=== PATIENT | male | born 1955 | race Caucasian/White ===

== ENCOUNTER → 2021-09-04 13:12 | Outpatient (CLI) | payer OTHER, SELFPAY ==
--- NOTE | ~2021-09-04 | CT_ITS ---
EXAMINATION: CT lung screening DATE: 09/04/2021 13:28 INDICATION: Personal history of tobacco dependence TECHNIQUE: Computed tomography (CT) of the chest was performed without intravenous contrast. The dose -length product was 328.70 mGy-cm. COMPARISON: None FINDINGS: No thoracic lymphadenopathy. Heart size normal. No significant pleural or pericardial effus ion. Pacemaker leads in expected position. There is a 3 mm left fissural nodule on the left. There is a 5 mm right middle lobe nodule. There is dependent atelectasis. No pneumothorax. No endobronchial l esions. Mild thoracic spondylosis. IMPRESSION: 1. Lung-RADS category 2: Benign appearance or behavior. Continue annual screening with noncontrast lo w-dose chest CT in 12 months. Reviewed, dictated and finalized at location B. GER ECONOMIC IMPRESSION: 1. Lung-RADS category 2: Benign appearance or behavior. Continue annual screeni ng with noncontrast low-dose chest CT in 12 months.
== END ==
PROVIDERS: PCP Internal Medicine; Visit Provider Internal Medicine
DX: Z87.891 Personal history of nicotine dependence (principal)
CPT/HCPCS: 71271

== ENCOUNTER 2021-09-05 08:13 | Outpatient (CLI) | payer OTHER, SELFPAY ==
--- NOTE | 2021-09-24 17:49 | WPDSLEEPSTUD ---
Sleep Study Date of Study: 09/05/21 <Sheela Braswell, DO - Last Filed: 09/24/21 19:01> Ordering Provider: Feliciano Nieto DO <Sheela Brasewll, DO - Last Filed: 09/24/21 19:01> Interpreting Physician: Sheela Braswell DO <Sheela Braswell, DO - Last Filed: 09/24/21 19:01> Sleep Study Type: Split Polysomnogram <Sheela Braswell DO - Last Filed: 09/24/21 19:01> Height: 1.83 m <Sheela Braswell DO - Last Filed: 09/24/21 19:01> Weight: 113.398 kg <Sheela Braswell DO - Last Filed: 09/24/21 19:01> Body Mass Index: 33.9 <Sheela Braswell DO - Last Filed: 09/24/21 19:01> Neck Circumference (inches): 17 <Sheela Braswell DO - Last Filed: 09/24/21 19:01> Sturgis: 10 <Sheela Braswell DO - Last Filed: 09/24/21 19:01> Reason for Sleep Study The patient was diagnosed with LUCIE 10-15 years ago. He is on PAP Therapy. He is snoring and has unrefreshing sleep despite being on CPAP. <Sheela Braswell, DO - Last Filed: 09/24/21 19:01> Sleep History The patient is a 65-year-old male with atrial fibrillation, hypertension, hyperlipidemia, history of stroke, long QT type 1 and LUCIE that had a Split Study ordered by his PCP for snoring and unrefreshing sleep despite being compliant with PAP Therapy. the patient states that he denies awakening from sleep short of breath. He rarely wakes up at night with heartburn, belching or cough. He frequently snores loud enough that others complain. He occasionally has trouble sleeping when he has a cold. He denies waking up gasping for air throughout the night. He frequently has breathing problems at night observed by others. He rarely sweats excessively at night. He rarely has heart palpitations or irregular heartbeats during the night. He occasionally falls asleep during the day but never while driving. He rarely has trouble at work due to sleepiness. He denies sleep paralysis and cataplexy. He rarely experiences vivid dreamlike scenes upon awakening or falling asleep. He rarely has nightmares. He denies having thoughts racing through his mind. He rarely feels sad or depressed. He rarely has anxiety. He occasionally notices parts of his body jerk. He rarely kicks during the night. He denies crawling and aching feelings in his legs. He rarely has leg pain during the night. He denies grinding his teeth during sleep awakening with jaw pain in the morning. He received friendly bothered by pain during the day and denies being awakened by pain during the night. He frequently wakes up feeling stiff in the morning. He rarely wakes up with sore and achy muscles. The patient goes to bed at 10:00 p.m. on weekdays and 11:00 p.m. on weekends. the patient can fall asleep within 2-3 minutes. He wakes up once or twice to use the restroom. He can fall back asleep within minutes. He wakes up at 5:45 a.m. on weekdays and 6:15 a.m. on the weekends. He typically gets 7-8 hours of sleep per night. He will stay in bed for 5 minutes after awakening. The patient currently lives with his and granddaughter. The patient does consume caffeinated beverages within 2 hours of bedtime. He does not engage in physical exercise before bedtime. He will watch television before falling asleep. He does not take naps in afternoon or the evening. He drinks 5-6 cups of coffee per day. He has 2-3 alcoholic beverages per month. He quit smoking 8 years ago. He does not use recreational drugs. <Sheela Braswell DO - Last Filed: 09/24/21 19:01> [facility] Past Medical History Medical History: Medical History A-fib Abnormal angiogram of head Dyslipidemia Essential (primary) hypertension History of stroke Radiculopathy of cervical region Stroke <Sheela Braswell, DO - Last Filed: 09/24/21 19:01> Surgical History Surgical History: Surgical History (Reviewed
[2021-09-24 17:52] VITALS: BMI 33.9
== END 2021-09-06 06:25 | disposition home or self-care (01) ==
LOC: ANHCSM 08:17
PROVIDERS: PCP Internal Medicine; Visit Provider Internal Medicine
DX: G47.10 Hypersomnia, unspecified (principal); G47.33 Obstructive sleep apnea (adult) (pediatric); F45.8 Other somatoform disorders; G47.8 Other sleep disorders
CPT/HCPCS: 95811

== ENCOUNTER 2021-10-17 12:52 | Outpatient (CLI) | payer OTHER, SELFPAY ==
--- NOTE | ~2021-10-17 | CT_ITS ---
EXAMINATION: CT shoulder RT wo con DATE: 10/17/2021 13:25 INDICATION: Right shoulder pain. TECHNIQUE: Computed tomography (CT) of the right shoulder was performed without intravenous contrast. Automated exposure control and iterative reconstruction technique were employed. The dose-length pro duct was 492.81 mGy-cm. COMPARISON: None FINDINGS: Bone alignment is normal. No fracture. The acromion undersurface is curved in morphology (t ype II). Subacromial spurring is noted. There is severe acromioclavicular joint osteoarthritis and mi ld glenohumeral joint osteoarthritis. There is no asymmetric fatty atrophy of the rotator cuff muscle bellies. IMPRESSION: 1. Polyarticular osteoarthritis. Reviewed, dictated and finalized at location B. HEALTH NURSE
== END 2021-10-17 12:53 | disposition home or self-care (01) ==
LOC: ANHIMG 13:01
PROVIDERS: PCP Internal Medicine; Visit Provider Nurse Practitioner
DX: M19.011 Primary osteoarthritis, right shoulder (principal)
CPT/HCPCS: 73200

== ENCOUNTER 2024-03-08 09:37 | Outpatient (CLI) | payer OTHER, SELFPAY ==
[2024-03-08 13:40] LABS: Anion Gap 6 mmol/L (4-12); Blood Urea Nitrogen 22 mg/dL (9-20); Calcium 9.2 mg/dL (8.4-10.2); Carbon Dioxide 28 mmol/L (22-30); Chloride 107 mmol/L (98-107); Estimated Glomerular Filt Rate > 60; Glucose 113 mg/dL (65-110); Potassium 3.3 mmol/L (3.4-5.0); Sodium 141 mmol/L (137-145)
== END 2024-03-08 09:38 | disposition home or self-care (01) ==
LOC: ANHGOSHLAB 09:39
PROVIDERS: PCP Internal Medicine; Visit Provider Internal Medicine
DX: R73.9 Hyperglycemia, unspecified (principal); N18.9 Chronic kidney disease, unspecified
CPT/HCPCS: 36415; 80048

== ENCOUNTER 2024-09-26 07:44 | Outpatient (CLI) | payer OTHER, SELFPAY ==
--- NOTE | ~2024-09-26 | US_ITS ---
EXAMINATION: US aorta DATE: 09/26/2024 08:22 INDICATION: Encounter for screening for cardiovascular disease. TECHNIQUE: Grayscale, color Doppler, and pulsed Doppler images of the aorta and common iliac arteries were obtained. COMPARISON: None. FINDINGS: The proximal aorta measures 2.6 cm. The mid aorta measures 2.4 cm. The distal aorta measures 5.3 cm. The right common iliac artery measures 1.3 cm. The left common iliac artery measures 0.9 cm. IMPRESSION: 1. Fusiform infrarenal abdominal aortic aneurysm measuring up to 5.3 cm in maximal diameter. Reviewed, dictated and finalized at location B. RACT CLERK IMPRESSION: 1. Fusiform infrarenal abdominal aortic aneurysm measuring up to 5.3 cm in maxi mal diameter.
--- NOTE | ~2024-09-26 | CT_ITS ---
EXAMINATION: CT lung screening DATE: 09/26/2024 08:21 INDICATION: Personal history of nicotine dependence TECHNIQUE: Computed tomography (CT) of the chest was performed without intravenous contrast. Addition al 3D reconstructions utilizing coronal maximum intensity projection (MIP) were performed. Automated exposure control and iterative reconstruction technique were employed. The dose-length product was 30 1.03 mGy-cm. COMPARISON: 09/04/2021 FINDINGS: Unchanged 5-6 mm right middle lobe nodule. Unchanged 3 mm left fissural nodule. No significant change in a few scattered peripheral regions of subtle reticular opacities most likely scarring related to prior infection. No new or enlarging pulmonary nodules, pulmonary edema or pleural effusion. Heart si ze is normal. Small amount of atherosclerotic coronary artery calcific location. No pericardial effus ion. Cardiac pacemaker lead tip near the apex of the right ventricle. Left atrial appendage occlusion device. Thoracic aorta is normal in caliber. No pathologically enlarged thoracic lymphadenopathy. Mi ld thoracic dextrocurvature with severe spondylosis. Chronic mild anterior wedging at T7 and T8. IMPRESSION: 1. Lung-RADS category 2: Benign appearance or behavior. Continue annual screening with noncontrast lo w-dose chest CT in 12 months. Reviewed, dictated and finalized at location B. ACT AND SERVICE CLERKS SUPERVISOR IMPRESSION: 1. Lung-RADS category 2: Benign appearance or behavior. Continue annual screeni ng with noncontrast low-dose chest CT in 12 months.
== END 2024-09-26 07:45 | disposition home or self-care (01) ==
LOC: MICIMG 07:45
PROVIDERS: PCP Internal Medicine; Visit Provider Internal Medicine
DX: I71.40 Abdominal aortic aneurysm, without rupture, unspecified (principal); Z13.6 Encounter for screening for cardiovascular disorders; Z87.891 Personal history of nicotine dependence
CPT/HCPCS: 71271; 76775

== ENCOUNTER 2025-01-04 01:33 | Day surgery (SDC) | payer OTHER, SELFPAY ==
[2024-11-09 15:23] VITALS: BMI 35.9
--- NOTE | 2024-11-09 15:39 | PC.NURSE ---
Pt stated is having a AAA repair/stent placement on 11/15/24, the day after his colonoscopy, with Dr. Mendes at [facility]. I informed pt he will need clearance from anesthesia and Dr. Carreon before proceeding with his colonoscopy. Pt is to stop plavix, last dose being 11/09. Pt stated will not take plavix tomorrow regardless if he has the colonoscopy in prep form his AAA repair. Pt understands we will call him after we speak with anesthesia and Dr. Carreon.
[2024-12-28 09:45] VITALS: BMI 34.6
--- NOTE | 2024-12-29 14:27 | SUR.PREOP ---
Spoke with patient in regards to Dr. Alvarez office visit on 12/27/24 for AAA follow up and that he had recommended patient to have antibiotics perioperatively due to recent AAA repair on 11/15/24. Patient did confirm that Dr. Mendes had mentioned this when he seen him in office 12/27/24 but did not prescribe him anything. I spoke with the MA Scottie she stated she did not have any orders for antibiotics to be ordered by Dr. Mendes, I told her the antibiotics that Dr. Carreon will use for hx of vavle replacement or hx of endocarditis are ampicillin and gentamicin. I asked her if this would be appropriate enough and she stated to order what our doctor thought appropriate. Per Dr. Pro the ampicillin and gentamicin are appropriate and have been ordered to be given day of. Last dose of Plavix confirmed to be taken on 12/30/24.
--- OUTSIDE RECORDS SUMMARY | 2025-01-04 01:36 | XMS_ITS | Clinical Summary ---
Author Organization [facility] Address [address] [place] [address] Care Team Providers Care Dipper And Baker Name Role Phone Naresh Nieto DO Primary Care Provider [phone] Krishna Chaparro MD Unavailable [phone] Dusty Mendes MD Unavailable [phone] Allergies No known active allergies Medications atorvastatin (LIPITOR) 40 mg tablet Take 1 tablet by mouth once daily 90 tablet 2 04/11/20 24 Active losartan-hydro chlorothiazide (HYZAAR) 100-25 mg per tablet Take 1 tablet by mouth nightly 90 tablet 3 10/19/19 25 Active UNABLE TO FINDIndication s:pain Apply 1 each topically as needed (as needed for pain) Med Name: Cool Breeze Menthol THC infused lotion 1:1 THC/CBD Active acetaminophen (TYLENOL) 500 mg tabletIndicati ons:Pain Take 2 tablets (1,000 mg total) by mouth every 6 (six) hours as needed for pain Active clopidogreL (PLAVIX) 75 mg tablet Take 1 tablet (75 mg total) by mouth daily 11/18/19 25 026 Active nadoloL (CORGARD) 20 mg tablet TAKE 1 TABLET BY MOUTH ONCE DAILY ALONG WITH 40MG FOR TOTAL DAILY DOSE OF 60MG 90 tablet 12/13/19 25 Active nadoloL (CORGARD) 40 mg tablet TAKE 1 TABLET BY MOUTH ONCE DAILY WITH 20MG TABLET FOR A TOTAL DOSE OF 60MG 90 tablet 12/13/19 Active nadoloL (CORGARD) 40 mg tablet TAKE 1 TABLET BY MOUTH ONCE DAILY WITH 20MG TABLET FOR A TOTAL DOSE OF 60MG 90 tablet 3 11/22/19 24 025 Discontinued nadoloL (CORGARD) 20 mg tablet TAKE 1 TABLET BY MOUTH ONCE DAILY ALONG WITH 40MG FOR TOTAL DAILY DOSE OF 60MG 90 tablet 3 11/22/19 24 025 Discontinued oxyCODONE (ROXICODONE) 5 mg immediate release tabletIndicati ons:Pain Take 1 tablet (5 mg total) by mouth every 4 (four) hours as needed for pain 5 tablet 11/16/19 25 025 Discontinued( erapy completed) senna-docusate (PERICOLACE) 8.6-50 mg Take 1 tablet by mouth daily 30 tablet 11/16/19 25 025 Discontinued( erapy completed) Active Problems Problem Noted Date Diagnosed Date AAA (abdominal aortic aneurysm) without rupture 11/15/2024 Assessment & Plan (11/15/2024 1:59 PM RADIO BOARD OPERATOR ANNOUNCER): Patient with hx of AAA. Most recent CTA showed Infrarenal aortic aneurysm with maximal measurement of 5.3 x 5.4cm beginning about 3.1 cm below the left renal artery ending above the bifurcation. -OR on 11/15 for EVAR -Q2 NV checks, OU, gianna -SBP goal 110-150 -ADAT -bedrest overnight, keep porras -pain control Mixed hyperlipidemia 02/09/2024 Presence of Amulet left atrial appendage closure device 01/08/2024 ICD (implantable cardioverter-defibrillator) in place 12/19/2021 Traumatic tear of right rotator cuff, initial en counter 11/18/2021 Overview (11/18/2021): Added automatically from request for surgery [id number] CVA (cerebral vascular accident) 08/15/2021 Assessment & Plan (11/15/2024 7:35 AM RADIO BOARD OPERATOR ANNOUNCER): s/p aspiration thrombectomy 11/2019, R MCA stroke in 11/2019 and recent MRI 09/2023 finding of chronic caudate hemorrhage in location of prior RMCA stroke -cont statin -hold plavix for now Assessment & Plan (08/16/2021 9:20 AM RADIO BOARD OPERATOR ANNOUNCER): Dx 2020 - cont ASA, statin Assessment & Plan (08/15/2021 4:25 PM RADIO BOARD OPERATOR ANNOUNCER): Dx 2020 - cont ASA, statin Long Q-T syndrome 07/17/2021 Overview (07/17/2021): Added automatically from request for surgery [id number] Assessment & Plan (11/15/2024 7:36 AM RADIO BOARD OPERATOR ANNOUNCER): S/p single lead ICD (nChannel) -OU monitoring overnight -cont OP follow up Assessment & Plan (08/16/2021 9:20 AM RADIO BOARD OPERATOR ANNOUNCER): + Genetic testing with family hx of multiple sudden deaths. S/p ICD placement with EP 08/15. - s/p IV cefazolin q8 x3 - home xarelto on hold, resume 08/20 - f/u with EP Assessment & Plan (08/15/2021 4:24 PM RADIO BOARD OPERATOR ANNOUNCER): + Genetic testing with family hx of multiple sudden deaths. S/p ICD placement with EP 08/15. - cont IV cefazolin q8 x3 - bedrest overnight, cont arm sling - tele, CXR in AM, CBC in AM - no heparin products - home xarelto on hold, resume 08/20 Hypertriglyceridemia 10/13/2019 Obstructive sleep apnea 09/03/2018 Assessment & Plan (08/16/2021 9:20 AM RADIO BOARD OPERATOR ANNOUNCER): - cont home CPAP Assessment & Plan (08/15/2021 4:25 PM RADIO BOARD OPERATOR ANNOUNCER): - cont home CPAP Mitral valve prolapse 09/03/2018 Former tobacco use 09/03/2018 Lipid screening 09/03/2018 Bilateral lower extremity edema 09/03/2018 BRICE (dyspnea on exertion) 09/03/2018 Family history of sudden cardiac 8 Atrial fibrillation 08/30/2014 Overview (01/09/2017): Atrial fibrillation Assessment & Plan (11/15/2024 7:35 AM RADIO BOARD OPERATOR ANNOUNCER): On nadolol at home, not on AC. Has watchman in place -restart nadolol as able -OU overnight Assessment & Plan (08/16/2021 9:20 AM RADIO BOARD OPERATOR ANNOUNCER): Follows with Dr. Reynolds of [facility] cantu on hold, resume 08/20 - cont home BB - tele Assessment & Plan (08/15/2021 4:25 PM RADIO BOARD OPERATOR ANNOUNCER): Follows with Dr. Reynolds of [facility] cantu on hold, resume 08/20 - cont home BB - tele Resolved Problems Problem Noted Date Diagnosed Date Resolved Date Infrarenal abdominal aortic aneurysm (AAA) without rupture 10/26/2024 11/15/2024 Chronic anticoagulation 10/13/2019 05/0 04/2024 Essential hypertension 09/03/201812/13 Assessment & Plan (08/16/2021 9:20 AM RADIO BOARD OPERATOR ANNOUNCER): - cont home losartan/HCTZ Assessment & Plan (08/15/2021 4:25 PM RADIO BOARD OPERATOR ANNOUNCER): - cont home losartan/HCTZ Encounters Date Type Department Care Team Description 12/27/2024 10:30 AM CDT Office Visit [facility] Stroke [address] [facility] [address] [place] [address] Bruno Cole MD 12/27/2024 8:30 AM CDT Office Visit [facility] Surgery [address] [facility] 8th [place] [address] [place] [address] Dusty Mendes MD Abdominal aortic aneurysm (AAA) without rupture, unspecified part (Primary Dx); Aftercare following surgery of the circulatory system 12/27/2024 6:49 AM CDT - 12/27/2024 11:59 PM CDT Hospital Encounter [facility] [address] [place] [address] Abdominal aortic aneurysm (AAA) without rupture, unspecified part; Aftercare following surgery of the circulatory system Discharge Disposition: Discharge to home or self care 12/27/2024 Orders Only [facility] Surgery [address] [facility] Floor 1 [place] [address] Dusty Mendes MD Abdominal aortic aneurysm (AAA) without rupture, unspecified part (Primary Dx); Aftercare following surgery of the circulatory system 12/13/2024 10:45 AM CDT Office Visit [facility] Cardiology [address] [place] [address] [place] [phone] Desi Reynolds MD Long Q-T syndrome (Primary Dx); Longstanding persistent atrial fibrillation (HCC); Mitral valve prolapse; ICD (implantable cardioverter-defibri llator) in place 12/13/2024 10:15 AM CDT Ancillary Procedure [facility] Cardiology [address] [facility] [address] [place] [phone] Long Q-T syndrome (Primary Dx); Fitting and adjustment of automatic implantable cardioverter-defibri llator 12/09/2024 Telephone [facility] Surgery [address] [facility] Floor 1 [place] [address] Scottie Valdivia CMA 12/06/2024 Telephone [facility] Cardiology [address] [facility] [address] [place] [phone] Thaddeus Del Castillo MD Pre-op 11/15/2024 7:50 AM RADIO BOARD OPERATOR ANNOUNCER Anesthesia Event [facility] Electrophysiology Lab 1 [place] [address] Esperanza Holman MD Harkins, Cherice Lynette, NP 11/15/2024 7:30 AM RADIO BOARD OPERATOR ANNOUNCER - 11/15/2024 11:40 AM RADIO BOARD OPERATOR ANNOUNCER Surgery [facility] Electrophysiology Lab 1 [place] [address] Dusty Mendes MD EVAR - Aorta Endovascular Repair 11/15/2024 5:41 AM RADIO BOARD OPERATOR ANNOUNCER - 11/16/2024 2:18 PM RADIO BOARD OPERATOR ANNOUNCER Hospital Encounter [facility] 1 [place] [address] Dusty Mendes MD Infrarenal abdominal aortic aneurysm (AAA) without rupture Discharge Disposition: Discharge to home or self care 11/10/2024 Telephone [facility] Surgery [address] [facility] Floor 1 [place] [address] Scottie Valdivia CMA 11/09/2024 Telephone [facility] Cardiology [address] [facility] [address] [place] [address] Thaddeus Del Castillo MD 11/04/2024 Telephone [facility] Cardiology [address] [facility] Medicine 8th [place] [address] [place] [address] Licha Kenny 11/03/2024 9:30 AM RADIO BOARD OPERATOR ANNOUNCER Pre-Admission Testing [facility] for Preoperative Assessment and Planning [facility] [address] [place] [address] Preoperative testing (Primary Dx) 11/03/2024 Orders Only [facility] Surgery [address] [facility] Floor 1 [place] [address] Dusty Mendes MD Abdominal aortic aneurysm (AAA) without rupture, unspecified part (Primary Dx); Aftercare following surgery of the circulatory system 11/03/2024 Telephone [facility] Surgery [address] [facility] Floor 1 [place] [address] Dusty Mendes MD 10/27/2024 Orders Only [facility] Cardiology [address] [facility] Medical Office Building [address] [place] [address] Desi Reynolds MD 10/27/2024 Documentation [facility] Surgery [address] [facility] 2nd Floor [address] [place] [address] Scottie Valdivia CMA 10/26/2024 9:30 AM RADIO BOARD OPERATOR ANNOUNCER Office Visit [facility] Surgery [address] [facility] 2nd Floor [address] [place] [address] Dusty Mendes MD Abdominal aortic aneurysm (AAA) without rupture, unspecified part 10/18/2024 1:49 PM RADIO BOARD OPERATOR ANNOUNCER - 10/18/2024 11:59 PM RADIO BOARD OPERATOR ANNOUNCER Hospital Encounter [facility] [address] [place] [address] Dusty Mendes MD Infrarenal abdominal aortic aneurysm (AAA) without rupture Discharge Disposition: Discharge to home or self care 10/17/2024 9:15 AM RADIO BOARD OPERATOR ANNOUNCER Office Visit [facility] Cardiology at [address] [place] [address] Thaddeus Del Castillo MD Mixed hyperlipidemia (Primary Dx); Paroxysmal atrial fibrillation (HCC); Essential hypertension; ICD (implantable cardioverter-defibri llator) in place; Long Q-T syndrome; Presence of Amulet left atrial appendage closure device; Infrarenal abdominal aortic aneurysm (AAA) without rupture 10/10/2024 Orders Only [facility] Surgery [address] [facility] Floor 1 [place] [address] Dusty Mendes MD Infrarenal abdominal aortic aneurysm (AAA) without rupture (Primary Dx) 10/07/2024 Telephone [facility] Surgery [address] [facility] Floor 1 [place] [address] Dusty Mendes MD from Last 3 Months Immunizations Immunization Administration Dates Next Due Influenza, Trivalent, High D ose, Split, Preservative Free, Intramuscular 11/16/2024 Surgical History Surgery Date Site/Laterality Comments TIBIA FRACTURE SURGERY c2013 Right DENTAL SURGERY 07/01/2021 multiple teeth extractions COLONOSCOPY SHOULDER SURGERY 10/05/2021 - 10/04/2022 torn bicep and rotator cuff CARDIAC DEFIBRILLATOR PLACEMENT 08/15/2021 [employer] BRAIN SURGERY Thrombectomy on Nov 09, 2019 FRACTURE SURGERY March 2013 CARDIAC VALVE REPLACEMENT Install Automa tic Internal Defibrillator/Pacer JOINT REPLACEMENT Shoulder reconstruct ion - November 2021 CARDIAC CATHETERIZATION 11/15/2024 N/A Procedure: EVAR - Aorta Endovascular Repair; Surgeon: Dusty Mendes MD; Location: [facility] EP [facility]; Service: Vascular; Laterality: N/A; Medical devices from this surgery are in the Medical Devices section. 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 Hyperlipidemia Stroke (HCC) 11/09/2019 Family History Medical History Relation Name Comments Other Brother 2 Afib; Cause of : Afib Alzheimer's disease Father Camryn Chamberlain Alzhe va's disease; Hypertension Father Camryn Chamberlain Memory loss Father Camryn Chamberlain Obesity Father Camryn Chamberlain Other Father Camryn Chamberlain Alive and we ll; Alzheimer's disease Mother Carlene Chamberlain Alzhei steven's disease; Cancer Mother Carlene Chamberlain Heart disease Mother Carlene Chamberlain Hypertension Mother Carlene Chamberlain Memory loss Mother Carlene Chamberlain Obesity Mother Carlene Chamberlain Cancer Paternal Grandfather Dean Chamberlain Anesthesia problems Neg Hx Malig Hyperthermia Neg Hx Relation Name Status Comments Brother 1 Brother 2 Father Camryn Chamberlain Alive Mother Carlene Chamberlain Paternal Grandfather Dean Chamberlain Social History Tobacco Use Types Packs/Day Years Used Date Smoking Tobacco: Former Cigarettes 1 40 0 10/05/1973 - 10/05/2013 Passive Smoke Exposure: Never Smokeless Tobacco: Never Tobacco Cessation:Counseling Given: Not Answered Comments:Still smoke a cigar on rare occasion. Alcohol Use Standard Drinks/Week Comments Yes 0 (1 standard drink = 0.6 oz pur e alcohol) all occassionally AUDIT-C Answer Date Recorded Q1: How often do you have a drink containing alc ohol? 2-4 times a month 11/15/2024 Q2: How many drinks containi ng alcohol do you have on a typical day when you are drinking? 1 or 2 11/15/2024 Q3: How often do you have si x or more drinks on one occasion? Never 11/15/2024 Personal Safety Answer Date Recorded Have you ever been in or are you currently in a harmful physical or emotional relationship or is someone making you feel afraid or unsafe? Denies 11/15/2024 Sex and Gender Information Value Date Recorded Sex Assigned at Not on file Legal Sex Male 7:41 AM RADIO BOARD OPERATOR ANNOUNCER Gender Identity Male 04/03/2021 2:48 PM CDT Sexual Orientation Straight 04/03/2021 2: 48 PM CDT Obstetrics History Last Filed Vital Signs Vital Sign Reading Time Taken Comments Blood Pressure 110/76 12/27/2024 10:14 AM CDT Pulse 76 12/27/2024 10:14 AM CDT Temperature 36.1 C (97 F) 12/13/2024 10:22 AM CDT Respiratory Rate 20 11/16/2024 11:29 AM RADIO BOARD OPERATOR ANNOUNCER Oxygen Saturation 97% 12/27/2024 8:22 AM CDT Inhaled Oxygen Concentration - - Weight 116.1 kg (256 lb) 12/27/2024 10:14 AM CDT Height 182.9 cm (6') 12/27/2024 10:14 AM CDT Body Mass Index 34.72 12/27/2024 10:14 AM CDT Plan of Treatment Health Maintenance Due Date Last Done Comments Colon Cancer Screening-Colonoscopy 1957 Depression Screening 1957 Hepatitis C Screening 1957 Prostate Cancer Screening-PSA 1957 DTaP/Tdap/Td Vaccine (1 - Tdap) 1968 Hepatitis B Screening 1975 Lung Cancer Screening 2007 Pneumococcal vaccine 65+ (1 of 1 - PCV) 2007 Zoster Vaccine (1 of 2) 2007 Well Visit 65+ 2022 Covid-19 Vaccine (3 - 2023-2 5 season) 2024 10/12/2020, 09/21/2020 Fall Risk Assessment 11/16/2025 11/16/2024, 03/09/20 20 Influenza Vaccine Completed 11/16/2024, 10/23/2012 Abdominal Aortic Aneurysm (A AA) Screen Completed 12/27/2024, 12/27/2024, 12/27/2024, Additional history exists Medical Devices Implanted Type Area Agility Instructor Device Identifier Shelf Expiration Date Model / Serial / Lot [employer] Vascade Mvp 6-12fr Venous Closure [id number] - [id number] Implanted:Qty: 1 on 01/08/2024 by Chava Quick MD at [facility] Right: Femoral Vein [employer] 09/07/2025 [id number] C-10U / / [id number] [employer] [place] Excluder 14.5mm 12cm Contralateral Leg Graft Endovascular [id number] - [id number] - [id number] Implanted:Qty: 1 on 11/15/2024 by Dusty Mendes MD at [facility] Endoprosthesis Left: Common Iliac Artery [employer] 05/23/2027 [id number] 00 / [id number] / [employer] [place] Excluder 14.5mm 10cm Contralateral Leg Graft Endovascular [id number] - [id number] - [id number] Implanted:Qty: 1 on 11/15/2024 by Liliane Aguilera MD at [facility] Endoprosthesis Right: Common Iliac Artery [employer] 08/28/2027 [id number] 00 / [id number] / [employer] Shantal D150 Dynagen Enduralife Easyview Hf Perspectiv 5.37x7.36cm 1 Chamber - [id number] - [id number] Implanted:Qty: 1 on 08/15/2021 by Blaine Crawford DO at [facility] ICD Left: Chest Wall [employer] 10/26/2021 D150 / [id number] / [employer]antal 0676 [place] 4-Front 64cm Active Fixation 2 Coil Lead Icd - [id number] - [id number] Implanted:Qty: 1 on 08/15/2021 by Blaine Crawford DO at [facility] Lead Left: Heart [employer] 06/27/2023 0676 / [id number] / [employer] [id number] 3.3x2.9in Large Envelope Absorbable Polyarylate Minocycline - [id number] Implanted:Qty: 1 on 08/15/2021 by Desi Reynolds MD at [facility] Other - see comments [employer] 04/14/2022 [id number] / / [id number] Description:Antibacterial en velope for Implant [employer] Excluder 14.5mm 28.5mm 12cm 5.5cm Conformable Active Control Trunk [id number] - [id number] - [id number] Implanted:Qty: 1 on 11/15/2024 by Dusty Mendes MD at [facility] Stent N/A: Abdominal Aorta [employer] 08/16/2027 [id number] 12 / [id number] / [id number] [employer] System Closure Repair Femoral Artery Suture Mediated Perclose Prostyle 33213-33 - [id number] - [id number] Implanted:Qty: 1 on 11/15/2024 by Liliane Aguilera MD at [facility] Vascular Closure Device [employer] 08/04/2026 42369-9 3 / [id number] / [id number] [employer] System Closure Repair Femoral Artery Suture Mediated Perclose Prostyle 79576-18 - [id number] - [id number] Implanted:Qty: 1 on 11/15/2024 by Liliane Aguilera MD at [facility] Vascular Closure Device Right: Groin [employer] 08/04/2026 90973-6 3 / [id number] / [id number] [employer] System Closure Repair Femoral Artery Suture Mediated Perclose Prostyle 41565-39 - [id number] - [id number] Implanted:Qty: 1 on 11/15/2024 by Liliane Aguilera MD at [facility] Vascular Closure Device Left: Groin [employer] 08/04/2026 10954-6 3 / [id number] / [id number] [employer] System Closure Repair Femoral Artery Suture Mediated Perclose Prostyle 99967-42 - [id number] - [id number] Implanted:Qty: 1 on 11/15/2024 by Liliane Aguilera MD at [facility] Vascular Closure Device Left: Groin [employer] 08/04/2026 29936-6 3 / [id number] / [id number] [employer] Ar-1927bcft Corkscrew Tigertail 5.5mm 14[address] Mechanism Vent 2 Square - [id number] Implanted:Qty: 1 on 11/20/2021 by Krishna Chaparro MD at [facility] Right: Shoulder [employer] 10/04/2024 AR-1927 [facility] / / [id number] [employer] Ar-1927bcft Corkscrew Tigertail 5.[address] 14[address] Mechanism Vent 2 Square - [id number] Implanted:Qty: 1 on 11/20/2021 by Krishna Chaparro MD at [facility] Right: Shoulder [employer] 05/04/2024 AR-1927 FT / / [id number] [employer] Ar-1927bcft Corkscrew Tigertail 5.5mm 14[address] Mechanism Vent 2 Square - [id number] Implanted:Qty: 1 on 11/20/2021 by Krishna Chaparro MD at [facility] Right: Shoulder [employer] 10/04/2023 AR-1927 [facility] / / [id number] [employer] Ar-1927bcft Corkscrew Tigertail 5.5mm 14[address] Mechanism Vent 2 Square - [id number] Implanted:Qty: 1 on 11/20/2021 by Krishna Chaparro MD at [facility] Right: Shoulder [employer] 10/04/2023 AR-1927 [facility] / / [id number] [employer] Ar-2324bcc Swivelock C 4.75mm 19.1mm Closed Eyelet Vent [place] Suture - [id number] Implanted:Qty: 1 on 11/20/2021 by Krishna Chaparro MD at [facility] Right: Shoulder [employer] 08/04/2025 AR-2324 [facility] / / [id number] [employer] Ar-2324bcc Swivelock C 4.75mm 19.1mm Closed Eyelet Vent [place] Suture - [id number] Implanted:Qty: 1 on 11/20/2021 by Krishna Chaparro MD at [facility] Right: Shoulder [employer] 07/04/2025 AR-2324 [facility] / / [id number] [employer] Percutaneous Transcatheter Amplatzer Amulet 25mm [id number]-[id number] - [id number] Implanted:Qty: 1 on 01/08/2024 by Chava Quick MD at [facility] [employer] 01/03/2028 9-ACP2- 010-025 / / [id number] [employer] Device Clsr Perclose Prostyle Sut-Mediatd Closure-Repair Sys 41340-06 - [id number] Implanted:Qty: 1 on 01/08/2024 by Chava Quick MD at [facility] [employer] 10/04/2025 05245-9 3 / [id number] [employer] Device Clsr Perclose Prostyle Sut-Mediatd Closure-Repair Sys 45437-28 - [id number] Implanted:Qty: 1 on 01/08/2024 by Chava Quick MD at [facility] N/A: Femoral Vein [employer] 10/04/2025 77400-3 3 / / [id number] Procedures Procedure Name Priority Date/Time Associated Diagnosis Comments CTA CHEST ABDOMEN PELVIS Schedule Routine, Read Routine (OP Routine) 12/27/2024 7:51 AM CDT Abdominal aortic aneurysm (AAA) without rupture, unspecified part Aftercare following surgery of the circulatory system POCT CREATININE - DEVICE Routine 12/27/2024 7:05 AM CDT DEVICE CHECK - IN OFFICE Routine 12/13/2024 10:12 AM CDT Long Q-T syndrome Fitting and adjustment of automatic implantable cardioverter-defibri llator EGFR Routine 11/16/2024 12:48 AM RADIO BOARD OPERATOR ANNOUNCER BASIC METABOLIC PANEL Routine 11/16/2024 12:48 AM RADIO BOARD OPERATOR ANNOUNCER CBC WITHOUT DIFFERENTIAL Routine 11/16/2024 12:48 AM RADIO BOARD OPERATOR ANNOUNCER EGFR STAT 11/15/2024 11:52 AM RADIO BOARD OPERATOR ANNOUNCER BASIC METABOLIC PANEL STAT 11/15/2024 11:52 AM RADIO BOARD OPERATOR ANNOUNCER CBC WITHOUT DIFFERENTIAL STAT 11/15/2024 11:52 AM RADIO BOARD OPERATOR ANNOUNCER EVAR - AORTA ENDOVASCULAR REPAIR Routine 11/15/2024 11:23 AM RADIO BOARD OPERATOR ANNOUNCER Infrarenal abdominal aortic aneurysm (AAA) without rupture POCT ACTIVATED CLOTTING TIME, LOW RANGE Routine 11/15/2024 10:57 AM RADIO BOARD OPERATOR ANNOUNCER POCT ACTIVATED CLOTTING TIME, LOW RANGE Routine 11/15/2024 10:10 AM RADIO BOARD OPERATOR ANNOUNCER POCT ACTIVATED CLOTTING TIME, LOW RANGE Routine 11/15/2024 9:30 AM RADIO BOARD OPERATOR ANNOUNCER POCT ACTIVATED CLOTTING TIME, LOW RANGE Routine 11/15/2024 8:51 AM RADIO BOARD OPERATOR ANNOUNCER HI AN PROCEDURE PLACEHOLDER Routine 11/15/2024 8:40 AM RADIO BOARD OPERATOR ANNOUNCER HI AN PROCEDURE PLACEHOLDER Routine 11/15/2024 8:18 AM RADIO BOARD OPERATOR ANNOUNCER HI AN PROCEDURE PLACEHOLDER Routine 11/15/2024 8:17 AM RADIO BOARD OPERATOR ANNOUNCER HI AN PROCEDURE PLACEHOLDER Routine 11/15/2024 8:01 AM RADIO BOARD OPERATOR ANNOUNCER HI AN ELECTIVE ENDOTRACHEAL AIRWAY Routine 11/15/2024 8:01 AM RADIO BOARD OPERATOR ANNOUNCER B CHECK SAMPLE STAT 11/15/2024 6:45 AM RADIO BOARD OPERATOR ANNOUNCER EGFR Routine 11/03/2024 10:10 AM RADIO BOARD OPERATOR ANNOUNCER Preoperative testing URINALYSIS, MICROSCOPIC ONLY Routine 11/03/2024 10:10 AM RADIO BOARD OPERATOR ANNOUNCER Preoperative testing DIFFERENTIAL AUTO Routine 11/03/2024 10:10 AM RADIO BOARD OPERATOR ANNOUNCER Preoperative testing COMPREHENSIVE METABOLIC PANEL Routine 11/03/2024 10:10 AM RADIO BOARD OPERATOR ANNOUNCER Preoperative testing CBC WITH AUTO DIFFERENTIAL Routine 11/03/2024 10:10 AM RADIO BOARD OPERATOR ANNOUNCER Preoperative testing TYPE AND SCREEN 14 DAY Routine 11/03/2024 10:10 AM RADIO BOARD OPERATOR ANNOUNCER Preoperative testing PROTIME-INR Routine 11/03/2024 10:10 AM RADIO BOARD OPERATOR ANNOUNCER Preoperative testing CPAP APTT ALGORITHM Routine 11/03/2024 10:10 AM RADIO BOARD OPERATOR ANNOUNCER Preoperative testing URINALYSIS AND REFLEX TO MICROSCOPIC AND CULTURE Routine 11/03/2024 10:10 AM RADIO BOARD OPERATOR ANNOUNCER Preoperative testing ECG 12-LEAD Routine 11/03/2024 9:38 AM RADIO BOARD OPERATOR ANNOUNCER Preoperative testing DEVICE CHECK - REMOTE Routine 10/27/2024 2:11 AM RADIO BOARD OPERATOR ANNOUNCER CTA CHEST ABDOMEN PELVIS Schedule Routine, Read Routine (OP Routine) 10/18/2024 3:48 PM RADIO BOARD OPERATOR ANNOUNCER Infrarenal abdominal aortic aneurysm (AAA) without rupture POCT CREATININE - DEVICE Routine 10/18/2024 3:08 PM RADIO BOARD OPERATOR ANNOUNCER POCT LIPID PANEL Routine 10/17/2024 9:02 AM RADIO BOARD OPERATOR ANNOUNCER Mixed hyperlipidemia from Last 3 Months Results * CTA Chest Abdomen Pelvis (12/27/2024 7:51 AM CDT) Anatomical Region Laterality Modality Body N/A Computed Tomogra phy 12/27/2024 11:1 0 AM CDT Impressions 12/27/2024 12:28 PM CDT 1. 54 mm x 54 mm infrarenal abdominal aortic aneurysm with stent graft in place. No evidence of endoleak. 2. AAA volume: 187 cc. Dictated by: Maxx Lopez MD The radiology attending physician has personally reviewed this study, and had reviewed and/or edited this written report and agrees with it. Electronically signed by: Maria E Rodriguez 12/27/2024 12:28 PM CDT EXAMINATION: CT ANGIOGRAPHY OF THE CHEST, ABDOMEN AND PELVIS WITH AND WITHOUT CONTRAST HISTORY: Infrarenal abdominal aortic aneurysm status post endovascular repair on 11/15/2024 TECHNIQUE: CT angiography of the chest, abdomen and pelvis was performed prior to and following the uneventful intravenous administration of 93 ml Optiray-350 using the post-endoluminal stent graft protocol. Vascular 3D images were generated on a dedicated workstation and also reviewed. COMPARISON: 10/18/2024 FINDINGS: VASCULAR FINDINGS: Thoracic: Borderline dilated thoracic aorta measuring up to 40 mm with left-sided 3 vessel aortic arch. Patent great vessels. Normal caliber main pulmonary artery without central pulmonary embolism. Abdominal: There is an infrarenal abdominal aortic aneurysm with an [id number]-ry-olyhd stent graft in place. The proximal attachment site is just below the takeoff of the renal arteries, and the distal attachment sites are in the common iliac arteries bilaterally. There is no perigraft flow to suggest an endoleak. No visceral stents are present. The celiac, superior mesenteric, and bilateral renal arteries are patent. No opacification of the inferior mesenteric artery proximally with distal reconstitution. Patent pelvic arterial vasculature. AAA volume (lowest renal artery to aortic bifurcation): 187 cc. The maximum diameter of the aneurysm is 54 mm AP x 54 mm [id number]. The maximum diameter of the graft is 28 mm AP x 28 mm [id number]. NON-VASCULAR FINDINGS: Left subclavian pacemaker defibrillator lead terminates in the right ventricle. Left atrial occluder device is in place, with persistent contrast opacification in the left atrium. Normal thyroid gland. Bilateral gynecomastia. Multiple prominent subcentimeter mediastinal lymph nodes, likely reactive. Debris in the distal thoracic trachea. Peripheral minimal reticulation, most pronounced in the left lung base is similar to prior examination. No focal consolidation, pleural effusion, or pneumothorax. No suspicious pulmonary nodule. Unchanged hypoattenuating lesion in hepatic segment 8, likely representing a cyst. No biliary ductal dilation. Normal angiographic appearance of the gallbladder, spleen, adrenal glands, and pancreas. Multiple right renal cyst. Kidneys otherwise enhance symmetrically without hydronephrosis or nephrolithiasis. No abdominal or pelvic lymphadenopathy. Small fat-containing left inguinal hernia. Minimal fat stranding in the left groin, likely due to prior access. Urinary bladder is normal. Moderate prostatomegaly. Decompressed stomach. Small and large bowel are normal in caliber without evidence of obstruction. There is colonic diverticulosis without evidence of diverticulitis. Normal appendix. No pneumoperitoneum or free intraperitoneal fluid. No suspicious osseous lesions. Procedure Note Rafael Lovett MD - 12/27/2024 EXAMINATION: CT ANGIOGRAPHY OF THE CHEST, ABDOMEN AND PELVIS WITH AND WITHOUT CONTRAST HISTORY: Infrarenal abdominal aortic aneurysm status post endovascular repair on 11/15/2024 TECHNIQUE: CT angiography of the chest, abdomen and pelvis was performed prior to and following the uneventful intravenous administration of 93 ml Optiray-350 using the post-endoluminal stent graft protocol. Vascular 3D images were generated on a dedicated workstation and also reviewed. COMPARISON: 10/18/2024 FINDINGS: VASCULAR FINDINGS: Thoracic: Borderline dilated thoracic aorta measuring up to 40 mm with left-sided 3 vessel aortic arch. Patent great vessels. Normal caliber main pulmonary artery without central pulmonary embolism. Abdominal: There is an infrarenal abdominal aortic aneurysm with an wczqo-hc-ymfem stent graft in place. The proximal attachment site is just below the takeoff of the renal arteries, and the distal attachment sites are in the common iliac arteries bilaterally. There is no perigraft flow to suggest an endoleak. No visceral stents are present. The celiac, superior mesenteric, and bilateral renal arteries are patent. No opacification of the inferior mesenteric artery proximally with distal reconstitution. Patent pelvic arterial vasculature. AAA volume (lowest renal artery to aortic bifurcation): 187 cc. The maximum diameter of the aneurysm is 54 mm AP x 54 mm [id number]. The maximum diameter of the graft is 28 mm AP x 28 mm kqtdi-fr-aoxn. NON-VASCULAR FINDINGS: Left subclavian pacemaker defibrillator lead terminates in the right ventricle. Left atrial occluder device is in place, with persistent contrast opacification in the left atrium. Normal thyroid gland. Bilateral gynecomastia. Multiple prominent subcentimeter mediastinal lymph nodes, likely reactive. Debris in the distal thoracic trachea. Peripheral minimal reticulation, most pronounced in the left lung base is similar to prior examination. No focal consolidation, pleural effusion, or pneumothorax. No suspicious pulmonary nodule. Unchanged hypoattenuating lesion in hepatic segment 8, likely representing a cyst. No biliary ductal dilation. Normal angiographic appearance of the gallbladder, spleen, adrenal glands, and pancreas. Multiple right renal cyst. Kidneys otherwise enhance symmetrically without hydronephrosis or nephrolithiasis. No abdominal or pelvic lymphadenopathy. Small fat-containing left inguinal hernia. Minimal fat stranding in the left groin, likely due to prior access. Urinary bladder is normal. Moderate prostatomegaly. Decompressed stomach. Small and large bowel are normal in caliber without evidence of obstruction. There is colonic diverticulosis without evidence of diverticulitis. Normal appendix. No pneumoperitoneum or free intraperitoneal fluid. No suspicious osseous lesions. IMPRESSION: 1. 54 mm x 54 mm infrarenal abdominal aortic aneurysm with stent graft in place. No evidence of endoleak. 2. AAA volume: 187 cc. Dictated by: Maxx Lopez MD The radiology attending physician has personally reviewed this study, and had reviewed and/or edited this written report and agrees with it. Electronically signed by: Rafael Lovett M.D. Dusty Mendes MD IMG CT PROCEDURES Final Result * POCT creatinine (12/27/2024 7:05 AM CDT) Creatinine POC 1.3 0.8 - 1.3 mg/dL Blood 12/27/2024 7:05 AM CDT 12/27/2024 7:05 AM CDT Dusty Mendes MD LAB POCT ORDERABLES - DE VICE Final Result [facility] Department [place] [address] * DEVICE CHECK - IN OFFICE (12/13/2024 10:12 AM CDT) Anatomical Region Laterality Modality Other 12/13/2024 2:00 AM CDT Narrative 12/15/2024 9:51 AM CDT Interpretation Summary: Battery and Leads (BL) Normal parameters noted on battery and lead(s) --- Estimated battery longevity 12 years. Charge time 9.8 seconds. Presenting Rhythm (HI) Ventricular Sensing (VS) --- Irregular VS 58 bpm. Atrial fibrillation Arrhythmic events (AE) No new arrhythmic events in monitoring period Transmission Information (TI) Device Summary Report Procedure Note Desi Reynolds MD - 12/15/2024 Interpretation Summary: Battery and Leads (BL) Normal parameters noted on battery and lead(s) --- Estimated batterylongevity 12 years. Charge time 9.8 seconds. Presenting Rhythm (HI) Ventricular Sensing (VS) --- Irregular VS 58 bpm. Atrial fibrillation Arrhythmic events (AE) No new arrhythmic events in monitoring period Transmission Information (TI) Device Summary Report us Desi Reynolds MD CV CARDIAC SERVICES PROCEDURES Final Result * eGFR (11/16/2024 12:48 AM RADIO BOARD OPERATOR ANNOUNCER) eGFR 66 >=60 mL/min/1. 73 m2 Comment: Interpretive Data Reference Interval Normal >/= 90 mL/min/1.73m2 Mildly decreased* 60 - 89 mL/min/1.73m2 Mildly to moderately decreased 45 - 59 mL/min/1.73m2 Moderately to severely decreased 30 - 44 mL/min/1.73m2 Severely decreased 15 - 29 mL/min/1.73m2 Kidney Failure < 15 mL/min/1.73m2 *Relative to young adult level Estimated glomerular filtration rate is determined by the 2020 CKD-EPI equation recommended by the National Kidney Foundation (A Unifying Approach to GFR Estimation: Recommendations of the NKF-ASK Task Force on Reassessing the Inclusion of Race in Diagnosing Kidney Disease, JASN 2020). The CKD-EPI equation should not be used for patients with unstable renal function and has not been validated in children and those over 70. Current interpretive data was last reviewed 2021. Blood 11/16/2024 12:4 8 AM RADIO BOARD OPERATOR ANNOUNCER 11/16/2024 2:13 AM RADIO BOARD OPERATOR ANNOUNCER us Dusty Mendes MD LAB BLOOD ORDERABLES Fin al Result [facility] Department [place] [address] * (ABNORMAL) CBC without differential (11/16/2024 12:48 AM RADIO BOARD OPERATOR ANNOUNCER) WBC 11.6(H) 3.8 - 9.9 K/cumm Hgb 13.1 13.0 - 17.5 g/dL [facility] Hct 38.9 38.9 - 50.3 % [facility] Plt 163 150 - 400 K/cumm [facility] MPV 10.3 9.1 - 12.3 fL [facility] RBC 4.27(L) 4.30 - 5.80 M/cumm [facility] MCV 91.1 81.3 - 96.4 fL [facility] MCH 30.7 27.1 - 33.3 pg [facility] MCHC 33.7 32.3 - 35.7 g/dL [facility] RDW CV 13.6 11.1 - 14.9 % [facility] RDW SD 45.1 35.7 - 48.1 fL [facility] NRBC abs 0.00 0.00 - 0.01 K/cumm [facility] Blood 11/16/2024 12:4 8 AM RADIO BOARD OPERATOR ANNOUNCER 11/16/2024 1:49 AM RADIO BOARD OPERATOR ANNOUNCER us Dusty Mendes MD LAB BLOOD ORDERABLES Fin al Result [facility] [place] [address] * (ABNORMAL) Basic metabolic panel (11/16/2024 12:48 AM RADIO BOARD OPERATOR ANNOUNCER) [facility] Sodium 142 135 - 145 mmol/L Potassium, pl 4.1 3.3 - 4.9 mmol/L [facility] Chloride 107 97 - 110 mmol/L [facility] CO2 25 22 - 32 mmol/L [facility] Anion gap 10 2 - 15 mmol/L [facility] BUN 22 6 - 25 mg/dL [facility] Creatinine 1.20 0.80 - 1.30 mg/dL [facility] Glucose 94 70 - 199 mg/dL [facility] Comment: Interpretive Data Fasting glucose >/= 126 mg/dl is diagnostic for diabetes. Fasting is defined as no caloric intake for at least 8 hours. Fasting glucose between 100 mg/dl to 125 mg/dl is diagnostic of prediabetes. In a patient with classic symptoms of hyperglycemia or hyperglycemic crisis, a random glucose >/= 200 mg/dl is diagnostic for diabetes. In the absence of unequivocal hyperglycemia, results should be confirmed by repeat testing. The classification and Diagnosis of Diabetes Diabetes Care 2021; 46: S19-S40. Current interpretive data was last revised 2022. Calcium 8.3(L) 8.5 - 10.3 mg/dL [facility] Blood 11/16/2024 12:4 8 AM RADIO BOARD OPERATOR ANNOUNCER 11/16/2024 1:48 AM RADIO BOARD OPERATOR ANNOUNCER us Dusty Mendes MD LAB BLOOD ORDERABLES Shailesh lunsford Result [facility] [place] [address] * eGFR (11/15/2024 11:52 AM RADIO BOARD OPERATOR ANNOUNCER) eGFR 68 >=60 mL/min/1. 73 m2 Comment: Interpretive Data Reference Interval Normal >/= 90 mL/min/1.73m2 Mildly decreased* 60 - 89 mL/min/1.73m2 Mildly to moderately decreased 45 - 59 mL/min/1.73m2 Moderately to severely decreased 30 - 44 mL/min/1.73m2 Severely decreased 15 - 29 mL/min/1.73m2 Kidney Failure < 15 mL/min/1.73m2 *Relative to young adult level Estimated glomerular filtration rate is determined by the 2020 CKD-EPI equation recommended by the National Kidney Foundation (A Unifying Approach to GFR Estimation: Recommendations of the NKF-ASK Task Force on Reassessing the Inclusion of Race in Diagnosing Kidney Disease, JASN 2020). The CKD-EPI equation should not be used for patients with unstable renal function and has not been validated in children and those over 70. Current interpretive data was last reviewed 2021. Blood 11/15/2024 11:5 2 AM RADIO BOARD OPERATOR ANNOUNCER 11/15/2024 12:37 PM RADIO BOARD OPERATOR ANNOUNCER us Dusty Mendes MD LAB BLOOD ORDERABLES Fin al Result Performing Organization Address [facility] de Phone Number [facility] Department [place] [address] * CBC without differential (11/15/2024 11:52 AM RADIO BOARD OPERATOR ANNOUNCER) [facility] WBC 8.8 3.8 - 9.9 K/cumm Hgb 14.4 13.0 - 17.5 g/dL [facility] Hct 42.0 38.9 - 50.3 % [facility] Plt 155 150 - 400 K/cumm [facility] MPV 9.9 9.1 - 12.3 fL [facility] RBC 4.76 4.30 - 5.80 M/cumm [facility] MCV 88.2 81.3 - 96.4 fL [facility] MCH 30.3 27.1 - 33.3 pg [facility] MCHC 34.3 32.3 - 35.7 g/dL [facility] RDW CV 13.5 11.1 - 14.9 % [facility] RDW SD 43.3 35.7 - 48.1 fL [facility] NRBC abs 0.00 0.00 - 0.01 K/cumm [facility] Blood 11/15/2024 11:5 2 AM RADIO BOARD OPERATOR ANNOUNCER 11/15/2024 12:02 PM RADIO BOARD OPERATOR ANNOUNCER Dusty Mendes MD LAB BLOOD ORDERABLES Fin al Result Performing Organization Address [facility] de Phone Number [facility] Department [place] [address] * (ABNORMAL) Basic metabolic panel (11/15/2024 11:52 AM RADIO BOARD OPERATOR ANNOUNCER) [facility] Sodium 140 135 - 145 mmol/L Potassium, pl 4.2 3.3 - 4.9 mmol/L [facility] Chloride 109 97 - 110 mmol/L [facility] CO2 24 22 - 32 mmol/L [facility] Anion gap 7 2 - 15 mmol/L [facility] BUN 17 6 - 25 mg/dL [facility] Creatinine 1.17 0.80 - 1.30 mg/dL [facility] Glucose 108 70 - 199 mg/dL [facility] Comment: Interpretive Data Fasting glucose >/= 126 mg/dl is diagnostic for diabetes. Fasting is defined as no caloric intake for at least 8 hours. Fasting glucose between 100 mg/dl to 125 mg/dl is diagnostic of prediabetes. In a patient with classic symptoms of hyperglycemia or hyperglycemic crisis, a random glucose >/= 200 mg/dl is diagnostic for diabetes. In the absence of unequivocal hyperglycemia, results should be confirmed by repeat testing. The classification and Diagnosis of Diabetes Diabetes Care 2021; 46: S19-S40. Current interpretive data was last revised 2022. Calcium 8.1(L) 8.5 - 10.3 mg/dL [facility] Blood 11/15/2024 11:5 2 AM RADIO BOARD OPERATOR ANNOUNCER 11/15/2024 11:59 AM RADIO BOARD OPERATOR ANNOUNCER Dusty Mendes MD LAB BLOOD ORDERABLES Fin al Result Performing Organization Address [facility] Co de Phone Number [facility] [place] [address] * EVAR - AORTA ENDOVASCULAR REPAIR (11/15/2024 11:23 AM RADIO BOARD OPERATOR ANNOUNCER) Anatomical Region Laterality Modality X-Ray Angiograph y Narrative 11/16/2024 6:48 AM RADIO BOARD OPERATOR ANNOUNCER Please see OpNote for result. Dusty Mendes MD CV CARDIAC CATH PROCEDUR ES Final Result * POCT Activated clotting time, low range (11/15/2024 10:57 AM RADIO BOARD OPERATOR ANNOUNCER) ACT 147 123 - 168 sec POC Performer [id number] [facility] POC Device Number [id number] [facility] Blood 11/15/2024 10:5 7 AM RADIO BOARD OPERATOR ANNOUNCER 11/15/2024 10:57 AM RADIO BOARD OPERATOR ANNOUNCER Dusty Mendes MD LAB POCT ORDERABLES - DE VICE Final Result Performing Organization Address City/[facility]/ZIP Co de Phone Number [facility] [place] [address] * (ABNORMAL) POCT Activated clotting time, low range (11/15/2024 10:10 AM RADIO BOARD OPERATOR ANNOUNCER) ACT 253(H) 123 - 168 sec POC Performer [id number] [facility] POC Device Number [id number] [facility] Blood 11/15/2024 10:1 0 AM RADIO BOARD OPERATOR ANNOUNCER 11/15/2024 10:10 AM RADIO BOARD OPERATOR ANNOUNCER us Dusty Mendes MD LAB POCT ORDERABLES - DE VICE Final Result Performing Organization Address [facility] Co de Phone Number [facility] [place] [address] * (ABNORMAL) POCT Activated clotting time, low range (11/15/2024 9:30 AM RADIO BOARD OPERATOR ANNOUNCER) ACT 337(H) 123 - 168 sec POC Performer [id number] POC Device Number [id number] [facility] Blood 11/15/2024 9:30 AM RADIO BOARD OPERATOR ANNOUNCER 11/15/2024 9:30 AM RADIO BOARD OPERATOR ANNOUNCER us Dusty Mendes MD LAB POCT ORDERABLES - DE VICE Final Result Performing Organization Address City/[facility] Co de Phone Number [facility] Department [place] [address] * POCT Activated clotting time, low range (11/15/2024 8:51 AM RADIO BOARD OPERATOR ANNOUNCER) ACT 152 123 - 168 sec POC Performer [id number] [facility] POC Device Number [id number] [facility] Blood 11/15/2024 8:51 AM RADIO BOARD OPERATOR ANNOUNCER 11/15/2024 8:51 AM RADIO BOARD OPERATOR ANNOUNCER us Dusty Mendes MD LAB POCT ORDERABLES - DE VICE Final Result [facility] [place] [address] * HI AN PROCEDURE PLACEHOLDER (11/15/2024 8:40 AM RADIO BOARD OPERATOR ANNOUNCER) Shaun Linder CRNA - 11/15/2024 8:40 AM RADIO BOARD OPERATOR ANNOUNCER Shaun Tejeda CRNA 11/15/2024 8:40 AM Peripheral IV Catheter Patient location: OR Staff: Placed by: NIGHT WAREHOUSE MANAGER: Shaun Tejeda CRNA Preprocedure prep: Prep solution: chlorhexadine PPE: gloves and provider hat/mask PIV line: Laterality: left Site: hand Catheter size: 18 g Technique: anatomical landmarks and palpatation Procedure details: good blood return and occlusive dressing applied Number of attempts: 1 Assessment: Events: patient tolerated procedure well with no complications us Esperanza [place] MD ANESTHESIA ORDERABLES Ed ited Result - Final * HI AN PROCEDURE PLACEHOLDER (11/15/2024 8:18 AM RADIO BOARD OPERATOR ANNOUNCER) Shaun Linder CRNA - 11/15/2024 8:18 AM RADIO BOARD OPERATOR ANNOUNCER Shaun Tejeda CRNA 11/15/2024 8:40 AM Peripheral IV Catheter Patient location: OR End time: 11/15/2024 8:18 AM Staff: Supervising provider: Esperanza [place] MD Placed by: Anesthesiologist: Esperanza [place] MD Preprocedure prep: Prep solution: chlorhexadine PPE: gloves and provider hat/mask PIV line: Laterality: right Site: wrist Catheter size: 18 g Technique: anatomical landmarks Procedure details: good blood return Number of attempts: 1 Assessment: Events: patient tolerated procedure well with no complications us Esperanza [place] MD ANESTHESIA ORDERABLES Ed ited Result - Final * HI AN PROCEDURE PLACEHOLDER (11/15/2024 8:17 AM RADIO BOARD OPERATOR ANNOUNCER) Shaun Linder CRNA - 11/15/2024 8:17 AM RADIO BOARD OPERATOR ANNOUNCER Shaun Tejeda CRNA 11/15/2024 8:48 AM Arterial Line Patient location: OR End time: 11/15/2024 8:17 AM Indication: continuous blood pressure monitoring and blood sampling needed Ultrasound assisted: yes Staff: Supervising provider: Esperanza [place] MD Placed by: NIGHT WAREHOUSE MANAGER: Shaun Tejeda CRNA Procedure prep: Prep solution: chlorhexadine/alcohol Prep: provider hat/mask Skin infiltrated with lidocaine 1%: yes Arterial line: Catheter size: 3 [place] Catheter length: 8 cm Catheter type: wire-guided catheter Seldinger technique: yes Laterality: left Site: radial artery Line secured: tape and Tegaderm Results: good waveform and good blood return Number of attempts: 1 Assessment: Events: patient tolerated procedure well with no complications us Esperanza [place] MD ANESTHESIA ORDERABLES Ed ited Result - Final * HI AN ELECTIVE ENDOTRACHEAL AIRWAY, HI AN PROCEDURE PLACEHOLDER (11/15/2024 8:01 AM RADIO BOARD OPERATOR ANNOUNCER) Narrative Shaun Tejeda CRNA - 11/15/2024 8:01 AM RADIO BOARD OPERATOR ANNOUNCER Shaun Tejeda CRNA 11/15/2024 8:48 AM Airway Patient location: OR Urgency: elective Indications for airway management: anesthesia Difficult airway: no Staff: Supervising provider: Esperanza [place] MD Placed by: NIGHT WAREHOUSE MANAGER: Shaun Tejeda CRNA Emergent airway documentation: Risks and benefits discussed: yes Consent obtained: yes Consent given by: patient Airway prep: Preoxygenated: yes Patient position: sniffing Mask difficulty assessment: 1 - vent by mask Spontaneous ventilation during airway: present Sedation level during airway: GA Final airway details: Final airway type: endotracheal airway Tube type: ETT ETT size: 8.0 mm Cuffed: yes Technique used for successful ETT placement: video laryngoscopy Devices/Methods used in placement: intubating stylet Insertion site: oral Blade type: John Video blade type: Baker Blade size: 4 Cormack-Lehane (video): grade I - full view of glottis Initial cuff pressure: 20 cm H2O Cuff volume: 6 mL Cuff inflated with: air ETT to teeth: 24 cm Placement verified by: auscultation Airway secured with: silk tape Number of attempts: 1 Ventilation between attempts: BVM us Esperanza [place] MD ANESTHESIA ORDERABLES Ed ited Result - Final * Check Sample (11/15/2024 6:45 AM RADIO BOARD OPERATOR ANNOUNCER) ABO Rh A Positive [facility] HCLL OTHER 11/15/2024 6:45 AM RADIO BOARD OPERATOR ANNOUNCER 11/15/2024 7:18 AM RADIO BOARD OPERATOR ANNOUNCER Dusty Mendes MD LAB BLOOD ORDERABLES Fin al Result Performing Organization Address [facility]/ZIP Co de Phone Number [facility] [place] [address] BJ * TYPE AND SCREEN 14 DAY (11/03/2024 10:10 AM RADIO BOARD OPERATOR ANNOUNCER) Pathologist [facility] [place], indirect Negative ABO Rh A Positive [facility] Blood 11/03/2024 10:1 0 AM RADIO BOARD OPERATOR ANNOUNCER 11/03/2024 10:51 AM RADIO BOARD OPERATOR ANNOUNCER Narrative [facility] - 11/03/2024 11:44 AM RADIO BOARD OPERATOR ANNOUNCER Is this test being ordered in advance for a procedure?->Yes Expected date of procedure:->11/15/24 Has the patient been transfused in the past 3 months?->No Brenda Akbar NP LAB BLOOD BANK TEST O RDERABLES Final Result Performing Organization Address [facility] Co de Phone Number [facility] [place] [address] * eGFR (11/03/2024 10:10 AM RADIO BOARD OPERATOR ANNOUNCER) eGFR 68 >=60 mL/min/1. 73 m2 Comment: Interpretive Data Reference Interval Normal >/= 90 mL/min/1.73m2 Mildly decreased* 60 - 89 mL/min/1.73m2 Mildly to moderately decreased 45 - 59 mL/min/1.73m2 Moderately to severely decreased 30 - 44 mL/min/1.73m2 Severely decreased 15 - 29 mL/min/1.73m2 Kidney Failure < 15 mL/min/1.73m2 *Relative to young adult level Estimated glomerular filtration rate is determined by the 2020 CKD-EPI equation recommended by the National Kidney Foundation (A Unifying Approach to GFR Estimation: Recommendations of the NKF-ASK Task Force on Reassessing the Inclusion of Race in Diagnosing Kidney Disease, JASN 2020). The CKD-EPI equation should not be used for patients with unstable renal function and has not been validated in children and those over 70. Current interpretive data was last reviewed 2021. Blood 11/03/2024 10:1 0 AM RADIO BOARD OPERATOR ANNOUNCER 11/03/2024 10:50 AM RADIO BOARD OPERATOR ANNOUNCER us Brenda Akbar NP LAB BLOOD ORDERABLES Final Result [facility] Department [place] [address] * (ABNORMAL) Differential, auto (11/03/2024 10:10 AM RADIO BOARD OPERATOR ANNOUNCER) Neutrophil abs 7.3(H) 1.5 - 6.5 K/cumm Imm gran abs 0.1 0.0 - 0.1 K/cumm [facility] Lymphocyte abs 2.5 0.8 - 3.3 K/cumm [facility] Monocyte abs 0.8 0.2 - 0.8 K/cumm [facility] Eosinophil abs 0.2 0.0 - 0.5 K/cumm [facility] Basophil abs 0.1 0.0 - 0.1 K/cumm [facility] Neutrophil pct 66.2 % [facility] Comment: Interpretive Data Percent cell count reference ranges are not reported, since discordance with absolute values may lead to misinterpretation of CBC data. Current Interpretive Data was last revised on 2018. Imm gran pct 0.8 % [facility] Comment: Interpretive Data Percent cell count reference ranges are not reported, since discordance with absolute values may lead to misinterpretation of CBC data. Current Interpretive Data was last revised on 2018. Lymphocyte pct 23.2 % [facility] Comment: Interpretive Data Percent cell count reference ranges are not reported, since discordance with absolute values may lead to misinterpretation of CBC data. Current Interpretive Data was last revised on 2018. Monocyte pct 7.5 % [facility] Comment: Interpretive Data Percent cell count reference ranges are not reported, since discordance with absolute values may lead to misinterpretation of CBC data. Current Interpretive Data was last revised on 2018. Eosinophil pct 1.6 % [facility] Comment: Interpretive Data Percent cell count reference ranges are not reported, since discordance with absolute values may lead to misinterpretation of CBC data. Current Interpretive Data was last revised on 2018. Basophil pct 0.7 % [facility] Comment: Interpretive Data Percent cell count reference ranges are not reported, since discordance with absolute values may lead to misinterpretation of CBC data. Current Interpretive Data was last revised on 2018. Blood 11/03/2024 10:1 0 AM RADIO BOARD OPERATOR ANNOUNCER 11/03/2024 10:50 AM RADIO BOARD OPERATOR ANNOUNCER Brenda Akbar NP LAB BLOOD ORDERABLES Final Result Performing Organization Address [facility] Co de Phone Number [facility] [place] [address] * CPAP aPTT algorithm (11/03/2024 10:10 AM RADIO BOARD OPERATOR ANNOUNCER) aPTT 29 28 - 38 sec Comment: Interpretive Data Heparin therapeutic range: 66.0 - 100.0 seconds. Range based on correlation with therapeutic heparin activity range of 0.3 - 0.7 Units/mL. Current interpretive data was last revised on 2023. Blood 11/03/2024 10:1 0 AM RADIO BOARD OPERATOR ANNOUNCER 11/03/2024 10:11 AM RADIO BOARD OPERATOR ANNOUNCER Brenda Akbar NP LAB BLOOD ORDERABLES Final Result Performing Organization Address [facility] Co de Phone Number [facility] [place] [address] * (ABNORMAL) Urinalysis reflex to microscopic and culture Urine, clean voided (11/03/2024 10:10 AM RADIO BOARD OPERATOR ANNOUNCER) Color, ur Straw Yellow Clarity, ur Clear Clear [facility] Specific gravity, ur 1.021 1.003 - 1.030 [facility] pH, urine 6.5 [facility] Comment: Interpretive Data U rine pH is affected by diet, medications, systemic acid-base disturbances, and renal tubular function. pH may affect urinary stone formation. For example, urine pH below 6.0 may help reduce the tendency for calcium phosphate stones and pH greater than 6.0 may reduce the tendency for uric acid stone formation. Source: [facility] Current Interpretive Data was last revised on 2017 Protein, ur ql 1+(A) Negative [facility] Glucose, ur ql Negative Negative [facility] Ketones, ur Negative Negative [facility] Bilirubin, ur Negative Negative [facility] Blood, ur Negative Negative [facility] Urobilinogen, ur <2.0 <2.0 mg/dL [facility] Nitrite, ur Negative Negative [facility] Leukocyte esterase, ur Negative Negative [facility] UA reflex comment Reflex to microscopic UA will be performed. [facility] Urine, clean voided 11/03/2024 10:10 AM RADIO BOARD OPERATOR ANNOUNCER 11/03/2024 10:47 AM RADIO BOARD OPERATOR ANNOUNCER Brenda Akbar NP LAB MICROBIOLOGY - NERAL ORDERABLES Final Result [facility] [place] [address] * (ABNORMAL) CBC with auto differential (11/03/2024 10:10 AM RADIO BOARD OPERATOR ANNOUNCER) WBC 11.0(H) 3.8 - 9.9 K/cumm Hgb 15.7 13.0 - 17.5 g/dL [facility] Hct 44.9 38.9 - 50.3 % [facility] Plt 200 150 - 400 K/cumm [facility] MPV 10.4 9.1 - 12.3 fL [facility] RBC 5.18 4.30 - 5.80 M/cumm [facility] MCV 86.7 81.3 - 96.4 fL [facility] MCH 30.3 27.1 - 33.3 pg [facility] MCHC 35.0 32.3 - 35.7 g/dL [facility] RDW CV 13.1 11.1 - 14.9 % [facility] RDW SD 41.2 35.7 - 48.1 fL [facility] NRBC abs 0.00 0.00 - 0.01 K/cumm [facility] Blood 11/03/2024 10:1 0 AM RADIO BOARD OPERATOR ANNOUNCER 11/03/2024 10:50 AM RADIO BOARD OPERATOR ANNOUNCER Brenda Akbar [facility] LAB BLOOD ORDERABLES Final Result Performing Organization Address [facility] de Phone Number [facility] [place] [address] * (ABNORMAL) Urinalysis, microscopic only (11/03/2024 10:10 AM RADIO BOARD OPERATOR ANNOUNCER) WBC, ur 0-5 0 - 5 /HPF RBC, ur 3-5(A) 0 - 2 /HPF [facility] Epithelial cells, squamous, ur 1-5 0 - 5 /HPF [facility] Mucous, ur Present(A) [facility] Culture Reflex Comment Reflex conditions for urine culture (WBC >10) not met. [facility] Urine, clean voided 11/03/2024 10:10 AM RADIO BOARD OPERATOR ANNOUNCER 11/03/2024 10:47 AM RADIO BOARD OPERATOR ANNOUNCER Brenda Akbar NP LAB URINE ORDERABLES Final Result Performing Organization Address [facility] Co de Phone Number [facility] [place] [facility] [address] * Protime-INR (11/03/2024 10:10 AM RADIO BOARD OPERATOR ANNOUNCER) PT 11.4 9.7 - 13.0 sec INR 1.05 0.90 - 1.20 [facility] Comment: Interpretive data Oral anticoagulant therapeutic ranges: Venous thromboembolism prophylaxis or treatment: 2.0-3.0 CARDIOLOGY Standard range: 2.0-3.0 High-intensity range: 2.5-3.5 Refer to indication-specific guidelines for appropriate target ranges for prosthetic heart valve replacement. Current interpretive data was last revised on 2019. Blood 11/03/2024 10:1 0 AM RADIO BOARD OPERATOR ANNOUNCER 11/03/2024 10:11 AM RADIO BOARD OPERATOR ANNOUNCER Brenda Akbar NP LAB BLOOD ORDERABLES Final Result [facility] [place] [address] * Comprehensive metabolic panel (11/03/2024 10:10 AM RADIO BOARD OPERATOR ANNOUNCER) Sodium 140 135 - 145 mmol/L Potassium, pl 3.6 3.3 - 4.9 mmol/L [facility] Chloride 102 97 - 110 mmol/L [facility] CO2 28 22 - 32 mmol/L [facility] Anion gap 10 2 - 15 mmol/L [facility] BUN 16 6 - 25 mg/dL [facility] Creatinine 1.18 0.80 - 1.30 mg/dL [facility] Glucose 106 70 - 199 mg/dL [facility] Comment: Interpretive Data Fasting glucose >/= 126 mg/dl is diagnostic for diabetes. Fasting is defined as no caloric intake for at least 8 hours. Fasting glucose between 100 mg/dl to 125 mg/dl is diagnostic of prediabetes. In a patient with classic symptoms of hyperglycemia or hyperglycemic crisis, a random glucose >/= 200 mg/dl is diagnostic for diabetes. In the absence of unequivocal hyperglycemia, results should be confirmed by repeat testing. The classification and Diagnosis of Diabetes Diabetes Care 202; 46: S19-S40. Current interpretive data was last revised 2022. Calcium 9.4 8.5 - 10.3 mg/dL [facility] Bilirubin, total 0.8 0.1 - 1.2 mg/dL [facility] Protein, pl 7.7 6.5 - 8.5 g/dL [facility] Albumin 4.3 3.5 - 5.0 g/dL [facility] Alk phos 93 40 - 130 Units/L [facility] ALT 30 7 - 55 Units/L [facility] AST 25 10 - 50 Units/L [facility] Blood 11/03/2024 10:1 0 AM RADIO BOARD OPERATOR ANNOUNCER 11/03/2024 10:50 AM RADIO BOARD OPERATOR ANNOUNCER Brenda Akbar NP LAB BLOOD ORDERABLES Final Result Performing Organization Address [facility] de Phone Number [facility] [place] [address] * ECG 12 lead (11/03/2024 9:38 AM RADIO BOARD OPERATOR ANNOUNCER) Ventricular Rate EKG/Min 71 BPM [facility] QRS-Interval (MSEC) 84 ms [facility] QT-Interval (MSEC) 425 ms [facility] QTc 462 ms [facility] R [place] -20 degrees [facility] T [place] -4 degrees [facility] Diagnosis Atrial fibrillation Abnormal ECG No previous ECGs available Confirmed by NARESH WEATHERS M.D ([id number]) on 11/04/2024 9:18:55 AM [facility] 11/03/2024 9:38 AM RADIO BOARD OPERATOR ANNOUNCER 11/04/2024 9:18 AM RADIO BOARD OPERATOR ANNOUNCER Brenda Akbar [employer] [facility] ECG ORDERABLES Final Result Performing Organization Address [facility] de Phone Number [facility] * DEVICE CHECK - REMOTE (10/27/2024 2:11 AM RADIO BOARD OPERATOR ANNOUNCER) Anatomical Region Laterality Modality Other 10/27/2024 2:11 AM RADIO BOARD OPERATOR ANNOUNCER Narrative 11/02/2024 4:06 PM RADIO BOARD OPERATOR ANNOUNCER Interpretation Summary: Battery and Leads (BL) Normal parameters noted on battery and lead(s) --- 12 years remaining (this is an estimate based on prior usage) Presenting Rhythm (HI) Ventricular Sensing (VS) --- rate 60-80 Arrhythmic events (AE) No new arrhythmic events in monitoring period Anticoagulation (AC) Patient on anticoagulant therapy Patient prescribed Rivaroxaban (Xarelto) Transmission Information (TI) Device Summary Report Procedure Note Desi Reynolds MD - 11/02/2024 Interpretation Summary: Battery and Leads (BL) Normal parameters noted on battery and lead(s) --- 12 years remaining(this is an estimate based on prior usage) Presenting Rhythm (HI) Ventricular Sensing (VS) --- rate 60-80 Arrhythmic events (AE) No new arrhythmic events in monitoring period Anticoagulation (AC) Patient on anticoagulant therapy Patient prescribed Rivaroxaban (Xarelto) Transmission Information (TI) Device Summary Report us Desi Reynolds MD [facility] PROCEDURES Final Result * CTA Chest Abdomen Pelvis (10/18/2024 3:48 PM RADIO BOARD OPERATOR ANNOUNCER) Anatomical Region Laterality Modality Body N/A Computed Tomogra phy 10/19/2024 4:08 AM RADIO BOARD OPERATOR ANNOUNCER Impressions 10/19/2024 4:08 AM RADIO BOARD OPERATOR ANNOUNCER 1. Infrarenal aortic aneurysm with maximal measurement of 5.3 x 5.4 cm beginning about 3.1 cm below the left renal artery ending above the bifurcation. 2. Right common iliac is more tortuous than the left. 3. Persistent flow in the left atrium despite and occluder in place. 4. Possible early fibrosis versus interstitial lung abnormality without change from prior study of 12/21/2023. Electronically signed by: Royce Justice M.D. Narrative 10/19/2024 4:08 AM RADIO BOARD OPERATOR ANNOUNCER Examination: CT angiogram of the chest, abdomen and pelvis HISTORY: Suspected infrarenal aortic aneurysm TECHNIQUE: Standard postcontrast CT of the chest, abdomen and pelvis was performed according to a CT angiogram protocol. Images were performed after the administration of 93 mL of Optiray 350 intravenous contrast. Images were sent to three-dimensional workstation for further evaluation. FINDINGS: No prior CT angiogram of the abdomen and pelvis was formed. Comparison is made to prior CT of the heart performed on 12/21/2023. Chest: Again seen is a pacemaker defibrillator with the lead overlying the right ventricle. A new initial occlusion devices seen. No supraclavicular, axillary or mediastinal lymphadenopathy. No pleural or pericardial effusion. Heart size is mildly enlarged and there is flow seen in the atrial appendage distal to the occluder. No pulmonary embolism is identified. The lungs again demonstrate minimal reticulation which could represent an interstitial lung abnormality or early pulmonary fibrosis. An elliptical nodule is in the right middle lobe at slice position -1583.4 without change. Thoracic aorta: The following measurements are obtained orthogonal to the long axis. 1. Sinus of Valsalva measurement: 4.6 x 4.2 cm. 2. Sinotubular junction: 3.6 x 3.6 cm 3. Ascending aorta at its greatest measurement 3.9 x 4.0 cm There is mild atherosclerosis but no evidence for instability. Abdomen/pelvis: The spleen, adrenal glands and pancreas are unremarkable. Tiny low attenuating lesion is seen within segment 8 of the liver likely representing a cyst. The gallbladder is decompressed. Right renal cysts are seen. The left kidney is unremarkable. No hydronephrosis. No retroperitoneal or mesenteric lymphadenopathy. The urinary bladder is fluid-filled but not thickened. The prostate is moderately enlarged. Multiple diverticula are seen but there is no diverticulitis. The appendix is seen and is normal. The small bowel is normal in course and caliber. Abdominal aorta: An infrarenal abdominal aortic aneurysm is seen which begins about 3.1 cm below the left renal artery. The aneurysm reaches a maximal dimension of 5.3 x 5.4 cm with circumferential thrombus and no evidence of instability. The right common iliac artery measures 11 x 9 mm. The right external iliac artery is mildly tortuous and measures 9 x 8 mm. The right common femoral artery measures 8 x 8.4 mm. The left common iliac artery measures 12 x 10 mm. Left external iliac artery measures 9 x 9 mm and the left common femoral artery measures 10 x 9 mm. The bone windows do not demonstrate any osseous lesion. Degenerative changes are seen in the lower lumbar spine. Procedure Note Royce Justice MD - 10/19/2024 Examination: CT angiogram of the chest, abdomen and pelvis HISTORY: Suspected infrarenal aortic aneurysm TECHNIQUE: Standard postcontrast CT of the chest, abdomen and pelvis was performed according to a CT angiogram protocol. Images were performed after the administration of 93 mL of Optiray 350 intravenous contrast. Images were sent to three-dimensional workstation for further evaluation. FINDINGS: No prior CT angiogram of the abdomen and pelvis was formed. Comparison is made to prior CT of the heart performed on 12/21/2023. Chest: Again seen is a pacemaker defibrillator with the lead overlying the right ventricle. A new initial occlusion devices seen. No supraclavicular, axillary or mediastinal lymphadenopathy. No pleural or pericardial effusion. Heart size is mildly enlarged and there is flow seen in the atrial appendage distal to the occluder. No pulmonary embolism is identified. The lungs again demonstrate minimal reticulation which could represent an interstitial lung abnormality or early pulmonary fibrosis. An elliptical nodule is in the right middle lobe at slice position -1583.4 without change. Thoracic aorta: The following measurements are obtained orthogonal to the long axis. 1. Sinus of Valsalva measurement: 4.6 x 4.2 cm. 2. Sinotubular junction: 3.6 x 3.6 cm 3. Ascending aorta at its greatest measurement 3.9 x 4.0 cm There is mild atherosclerosis but no evidence for instability. Abdomen/pelvis: The spleen, adrenal glands and pancreas are unremarkable. Tiny low attenuating lesion is seen within segment 8 of the liver likely representing a cyst. The gallbladder is decompressed. Right renal cysts are seen. The left kidney is unremarkable. No hydronephrosis. No retroperitoneal or mesenteric lymphadenopathy. The urinary bladder is fluid-filled but not thickened. The prostate is moderately enlarged. Multiple diverticula are seen but there is no diverticulitis. The appendix is seen and is normal. The small bowel is normal in course and caliber. Abdominal aorta: An infrarenal abdominal aortic aneurysm is seen which begins about 3.1 cm below the left renal artery. The aneurysm reaches a maximal dimension of 5.3 x 5.4 cm with circumferential thrombus and no evidence of instability. The right common iliac artery measures 11 x 9 mm. The right external iliac artery is mildly tortuous and measures 9 x 8 mm. The right common femoral artery measures 8 x 8.4 mm. The left common iliac artery measures 12 x 10 mm. Left external iliac artery measures 9 x 9 mm and the left common femoral artery measures 10 x 9 mm. The bone windows do not demonstrate any osseous lesion. Degenerative changes are seen in the lower lumbar spine. IMPRESSION: 1. Infrarenal aortic aneurysm with maximal measurement of 5.3 x 5.4 cm beginning about 3.1 cm below the left renal artery ending above the bifurcation. 2. Right common iliac is more tortuous than the left. 3. Persistent flow in the left atrium despite and occluder in place. 4. Possible early fibrosis versus interstitial lung abnormality without change from prior study of 12/21/2023. Electronically signed by: Royce Justice M.D. Dusty Mendes MD IMG CT PROCEDURES Final Result * (ABNORMAL) POCT creatinine (10/18/2024 3:08 PM RADIO BOARD OPERATOR ANNOUNCER) Creatinine POC 1.4(H) 0.7 - 1.3 mg/dL Blood 10/18/2024 3:08 PM RADIO BOARD OPERATOR ANNOUNCER 10/18/2024 3:08 PM RADIO BOARD OPERATOR ANNOUNCER Dusty Mendes MD LAB POCT ORDERABLES - DE VICE Final Result [facility] [place] [address] * POCT lipid panel (10/17/2024 9:02 AM RADIO BOARD OPERATOR ANNOUNCER) Cholesterol, POC <100 mg/dL HDL, POC 24 mg/dL Triglycerides, POC 141 mg/dL LDL Cholesterol POC 47.8 mg/dL Cholesterol Total, POC <100 mg/dL Capillary blood 10/17/2024 9 :02 AM RADIO BOARD OPERATOR ANNOUNCER Thaddeus Del Castillo MD POINT OF CARE TEST ORDERA BLES Final Result from Last 3 Months Insurance [facility] OPEN ACCESS [employer] OPEN ACCESS MEDICARE [employer] OPEN ACCESS WORK[employer] COMPENSATION GENERIC Advance Directives For more information, please contact: [phone] * Full Code (Latest Code Status on File) Date Activated Date Inactivated Comments 11/15/2024 2:21 PM 11/16/2024 6:25 PM * Full Code Date Activated Date Inactivated Comments 08/15/2021 1:06 PM 08/16/2021 3:51 PM * Full Code Date Activated Date Inactivated Comments 08/15/2021 1:06 PM 08/15/2021 1:06 PM Care Teams [facility] [employer] Relationship Specialty Start Date End Date Naresh Nieto DO PCP - General 09/07/14 Krishna Chaparro MD [address] [place] [address] Consulting Physician Orthopedic Surgery 11/20/21 Dusty Mendes MD [id number] [place] [address] Consulting Physician Vascular Surgery 11/16/24
--- OUTSIDE RECORDS SUMMARY | 2025-01-04 01:36 | XMS_ITS | Clinical Summary ---
Author Organization [facility] Address [address] [place] [address] Care Team Providers Care Plumber Cub Name Role Phone Feliciano Nieto DO Primary Care Provider [phone] Source Comments [facility],non-owned Affiliates and Associated Physician Practices is amultiple site organization consisting of ambulatory clinics and hospital sitesin [place], [place], [place] and [place]. This disclosure is being madepursuant to the Care Everywhere program and may not contain all information available regarding this patient. Last updated 18.[facility] Allergies No known active allergies Medications * Be aware that medications may not be up to date on this document. Alwaysverify current medications with the patient. Medication Sig Dispensed Refills Start Date End Date Status aspirin (ASPIRIN) 81 MG chew tablet Take 1 tablet by mouth once daily 11/11/2019 Active rivaroxaban (XARELTO) 20 MG tablet Take 1 tablet by mouth daily with dinner 30 tablet 3 11/11/2019 Active atorvastatin (LIPITOR) 40 MG tablet Take 1 tablet by mouth at bedtime 30 tablet 3 11/11/2019 Active metoprolol tartrate (LOPRESSOR) 25 MG tablet Take 1 tablet by mouth 2 times daily 60 tablet 3 11/11/2019 Active Active Problems Problem Noted Date Diagnosed Date Acute right MCA stroke 11/09/2019 Atrial fibrillation Social History Tobacco Use Types Packs/Day Years Used Date Smoking Tobacco: Former Smokeless Tobacco: Never Alcohol Use Standard Drinks/Week Comments Yes 0 (1 standard drink = 0.6 oz pur e alcohol) Sex and Gender Information Value Date Recorded Sex Assigned at Not on file Gender Identity Not on file Sexual Orientation Not on file Last Filed Vital Signs Vital Sign Reading Time Taken Comments Blood Pressure 124/90 11/11/2019 11:50 AM ORTHOTIST PROSTHETIST Pulse 71 11/11/2019 11:50 AM ORTHOTIST PROSTHETIST Temperature 36.8 C (98.2 F) 11/11/2019 11:50 AM ORTHOTIST PROSTHETIST Respiratory Rate 16 11/11/2019 11:5 0 AM ORTHOTIST PROSTHETIST Oxygen Saturation 97% 11/11/2019 11: 50 AM ORTHOTIST PROSTHETIST Inhaled Oxygen Concentration 21% 03/2020 11:00 PM ORTHOTIST PROSTHETIST Weight 117.8 kg (259 lb 11.2 oz) 2019 10:00 AM ORTHOTIST PROSTHETIST Height 182.9 cm (6') 11/11/2019 10:00 AM ORTHOTIST PROSTHETIST Body Mass Index 35.22 11/11/2019 10:00 AM ORTHOTIST PROSTHETIST Plan of Treatment Health Maintenance Due Date Last Done Comments COLOGUARD (AGES 45-75) - COLON CA SCREENING 1957 COLON MONITORING 1957 COLONOSCOPY - COLON CA SCREENING 1957 CT COLONOGRAPHY - COLON CA SCREENING 1955 Colorectal Cancer Screening 1957 FIT - COLON CA SCREENING 1957 FLEX SIG - COLON CA SCREENING 1957 HEPATITIS C SCREENING 09/26/1975 DTAP/TDAP/TD VACCINES (1 - Tdap) 1976 PNEUMOCOCCAL VACCINE 50+ (1 of 1 - PCV) 2007 ZOSTER VACCINE (1 of 2) 2007 AAA SCREENING 2022 SCREENING FOR DIABETES 11/11/2022 , 11/11/2019, 11/11/2019, Additional history exists COVID-19 VACCINE ( - 2023- season) 2024 DEPRESSION SCREENING 10/05/2024 INFLUENZA VACCINE (Season Ended) 2025 Respiratory Syncytial Virus (RSV) Vaccine Pt: or over 60 yrs (1 - 1-dose 75+ series) 2032 HEPATITIS B VACCINE Aged Out No longe r eligible based on patient's age to complete this topic HIB VACCINE Aged Out No longer eligi ble based on patient's age to complete this topic HPV VACCINE Aged Out No longer eligi ble based on patient's age to complete this topic MENINGOCOCCAL (Group B) VACCINE SHARED DECISION-MAKING Aged Out No longer eligible based on patient's age to complete this topic MENINGOCOCCAL GROUPS A/C/Y/W VACCINE Aged Out No longer eligible based on patient's age to complete this topic Procedures Procedure Name Priority Date/Time Associated Diagnosis Comments BASIC METABOLIC PANEL (CALCIUM TOTAL) Routine 11/11/2019 12:11 AM ORTHOTIST PROSTHETIST from Last 3 Months or Most Recently Relevant to Health Maintenance Results * BASIC METABOLIC PANEL (CALCIUM TOTAL) (11/11/2019 12:11 AM ORTHOTIST PROSTHETIST) BUN 17 7 - 26 mg/dL 11/11/2019 12:49 AM [facility] Creatinine 1.1 0.6 - 1.2 mg/dL 11/11/2019 12:49 AM [facility] Sodium 139 136 - 145 mmol/L 11/11/2019 12:49 AM [facility] Potassium 4.1 3.5 - 4.5 mmol/L 11/11/2019 12:49 AM [facility] Chloride 106 98 - 107 mmol/L 11/11/2019 12:49 AM [facility] CO2 25 22 - 29 mmol/L 11/11/2019 12:49 AM [facility] Glucose 91 70 - 115 mg/dL 11/11/2019 12:49 AM [facility] Calcium 8.6 8.4 - 10.2 mg/dL 11/11/2019 12:49 AM [facility] Anion Gap 12 8 - 18 11/11/2019 12:49 AM [facility] BUN/Creatinine Ratio 15 7 - 23 11/11/2019 12:49 AM [facility] Osmolality Calculated 289 270 - 300 mOsm/kg 11/11/2019 12:49 AM [facility] eGFR >60 >60 mL/min/1.7 3 m2 11/11/2019 12:49 AM [facility] Blood BLOOD SPECIMEN / Unknown Lab Venipuncture / Unknown 11/11/2019 12:11 AM ORTHOTIST PROSTHETIST 11/11/2019 12:27 AM ORTHOTIST PROSTHETIST Leticia Santana MD LAB - CHEMISTRY [facility] Organization Address City/State/ZIP Co de Phone Number [address] [phone] from Last 3 Months or Most Recently Relevant to Health Maintenance Advance Directives * Full Code (Latest Code Status on File) Date Activated Date Inactivated Comments 11/09/2019 5:29 PM 11/11/2019 4:31 PM Care Teams Plumber Cub Relationship Specialty Start Date End Date Feliciano Nieto DO PCP - General Internal Medicine 11/09/19
--- OUTSIDE RECORDS SUMMARY | 2025-01-04 01:36 | XMS_ITS | Clinical Summary ---
Author Organization [facility] Address [facility] [place] [address] Care Team Providers Care Casing Operator Name Role Phone None, Provider MD Primary Care Provider Unavaila ble Allergies No known active allergies Medications amlodipine 5 MG tablet Take 5 mg by mouth daily. Active rivaroxaban 20 MG Tab tablet Take by mouth daily with supper. Take with food Active losartan 100 MG tablet Take 100 mg by mouth daily. Active metoprolol succinate ER 100 MG 24 hr tablet Take 100 mg by mouth daily. Active Active Problems Problem Noted Date Diagnosed Date CVA (cerebral vascular accident) (CMS/[facility] HHS/HC C) 11/15/2019 Immunizations Name Administration Dates Next Due PFIZER COVID-19 (ORIGINAL FO RMULATION, PURPLE CAP) mRNA, LNP-S, PF, 30 MCG/0.3 ML DOSE 10/12/2020,09/21/2020 Social History Tobacco Use Types Packs/Day Years Used Date Smoking Tobacco: Never Assessed Sex and Gender Information Value Date Recorded Sex Assigned at Not on file Legal Sex Male 8:31 PM CDT Gender Identity Not on file Sexual Orientation Not on file Last Filed Vital Signs Vital Sign Reading Time Taken Comments Blood Pressure 145/97 09/20/2021 10:09 AM CR[employer]SB[employer] FRAME WIRER Pulse 75 09/20/2021 10:09 AM [employer] [employer] WIR[facility] Temperature 36.7 C (98.1 F) 09/20/2021 10:09 AM [facility] [employer] [facility] Respiratory Rate 18 09/20/2021 10:09 AM [facility] FRAME WIR[facility] Oxygen Saturation 97% 09/20/2021 10:09 AM CR[facility]SBAR FRAME WIRER Inhaled Oxygen Concentration - - Weight 113.4 kg (250 lb) 09/20/2021 10:09 AM CROSSBAR FRAME WIRER Height 182.9 cm (6') 09/20/2021 10:09 AM [employer]SB[facility] FRAME WIR[facility] Body Mass Index 33.91 09/20/2021 10:09 AM CROSSBAR FRAME WIRER Plan of Treatment Health Maintenance Due Date Last Done Comments Colorectal Cancer Screening Colonoscopy (10 Years) 1957 Hepatitis C 1975 DTaP, Tdap and Td Vaccines ( 1 - Tdap) 1976 Zoster Vaccines (1 of 2) 2007 Pneumococcal Vaccine: 65+ Years (1 of 1 - PCV) 2022 COVID-19 Vaccine (3 - 2023-2 5 season) 2024 10/12/2020, 09/21/2020 RSV Immunization or 60+ Years (1 - 1-dose 75+ series) 2032 Meningococcal B Vaccine Aged Out No l onger eligible based on patient's age to complete this topic Meningococcal Vaccine Aged Out No pedro sunil eligible based on patient's age to complete this topic RSV Immunizations Under 20 Months Aged Out No longer eligible b ased on patient's age to complete this topic Insurance [facility] Care Teams Casing Operator Relationship Specialty Start Date End Date None, Provider, PCP - General 11/09/19
--- OUTSIDE RECORDS SUMMARY | 2025-01-04 01:36 | XMS_ITS | Encounter Summary ---
Author Organization [facility] Address [address] [place] [address] Care Team Providers Care Car Repairer Helper Name Role Phone Feliciano Nieto DO Primary Care Provider [phone] Krishna Chaparro MD Unavailable [phone] Dusty Mendes MD Unavailable [phone] Encounter Details Date Type Department Care Team (Late st Contact Info) Description 10/22/2021 Telephone [facility] Radiology [address] [place] [address] Emani Rodriguez, SNUFF BOX FINISHER [address] [facility] [address] [address] Social History Tobacco Use Types Packs/Day Years Used Date Smoking Tobacco: Former Cigarettes Q uit: 10/19/2012 Smokeless Tobacco: Never Alcohol Use Standard Drinks/Week Comments Yes 0 (1 standard drink = 0.6 oz pur e alcohol) all occassionally AUDIT-C Answer Date Recorded Q1: How often do you have a drink containing alc ohol? Never 08/15/2021 Q2: How many drinks containi ng alcohol do you have on a typical day when you are drinking? 1 or 2 08/15/2021 Q3: How often do you have six or more drinks on one occasion? 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 Gender Identity Male 04/03/2021 2:48 PM CDT Sexual Orientation Straight 04/03/2021 2: 48 PM CDT documented as of this encounter Plan of Treatment Not on file documented as of this encounter Visit Diagnoses Not on filedocumented in this encounter Care Teams Car Repairer Helper Relationship Specialty Start Date End Date Feliciano Nieto DO PCP - General 09/07/14 Krishna Chaparro MD [address] [facility] [address] [place] [address] Consulting Physician Orthopedic Surgery 11/20/21 Dusty Mendes MD [address] [facility] [id number] [place] [address] Consulting Physician Vascular Surgery 11/16/24 documented as of this encounter
--- OUTSIDE RECORDS SUMMARY | 2025-01-04 01:36 | XMS_ITS | Referral Summary ---
Author Organization [facility] Address [address] [place] [address] Care Team Providers Care Assistance Representative Name Role Phone Naresh Nieto DO Primary Care Provider [phone] Krishna Chaparro MD Unavailable [phone] Dusty Mendes MD Unavailable [phone] Encounters Date Type Department Care Team Description 12/27/2024 Orders Only [facility] Surgery [address] [facility] Floor 1 [place] [address] Dusty Mendes MD Abdominal aortic aneurysm (AAA) without rupture, unspecified part (Primary Dx); Aftercare following surgery of the circulatory system 12/27/2024 10:30 AM CDT Office Visit [facility] Stroke [address] [facility] [address] [place] [address] Bruno Cole MD 12/27/2024 8:30 AM CDT Office Visit [facility] Surgery [address] [facility] 8th [place] [address] [place] [id number] Dusty Mendes MD Abdominal aortic aneurysm (AAA) without rupture, unspecified part (Primary Dx); Aftercare following surgery of the circulatory system 12/27/2024 6:49 AM CDT - 12/27/2024 11:59 PM CDT Hospital Encounter [facility] [address] [place] [address] Abdominal aortic aneurysm (AAA) without rupture, unspecified part; Aftercare following surgery of the circulatory system Discharge Disposition: Discharge to home or self care 12/13/2024 10:45 AM CDT Office Visit [facility] Cardiology [address] [facility] [address] [place] [address] Desi Reynolds MD Long Q-T syndrome (Primary Dx); Longstanding persistent atrial fibrillation (HCC); Mitral valve prolapse; ICD (implantable cardioverter-defibri llator) in place 12/13/2024 10:15 AM CDT Ancillary Procedure [facility] Cardiology [address] [facility] [address] [place] [address] Long Q-T syndrome (Primary Dx); Fitting and adjustment of automatic implantable cardioverter-defibri llator 12/09/2024 Telephone [facility] Surgery [address] [facility] Floor 1 [place] [address] Scottie Valdivia CMA 12/06/2024 Telephone [facility] Cardiology [address] [facility] [address] [place] [address] Thaddeus Del Castillo MD Pre-op 11/15/2024 5:41 AM TECHNICIAN AUTOMATIC - 11/16/2024 2:18 PM TECHNICIAN AUTOMATIC Hospital Encounter [facility] [address] [place] [address] Dusty Mendes MD Infrarenal abdominal aortic aneurysm (AAA) without rupture Discharge Disposition: Discharge to home or self care 11/15/2024 7:30 AM TECHNICIAN AUTOMATIC - 11/15/2024 11:40 AM TECHNICIAN AUTOMATIC Surgery [facility] Electrophysiology Lab [address] [place] [address] Dusty Mendes MD EVAR - Aorta Endovascular Repair 11/15/2024 7:50 AM TECHNICIAN AUTOMATIC Anesthesia Event [facility] Electrophysiology Lab [address] [place] [address] Esperanza Holman MD Harkins, Cherice Lynette, NP 11/10/2024 Telephone [facility] Surgery [address] [facility] Floor 1 [place] [address] Scottie Valdivia CMA 11/09/2024 Telephone [facility] Cardiology [address] [place] [phone] Thaddeus Del Castillo MD 11/04/2024 Telephone [facility] Cardiology [address] [facility] Medicine 8th [place] [address] [place] [address] Licha Kenny 11/03/2024 Orders Only [facility] Surgery [address] [facility] Floor 1 [place] [address] Dusty Mendes MD Abdominal aortic aneurysm (AAA) without rupture, unspecified part (Primary Dx); Aftercare following surgery of the circulatory system 11/03/2024 Telephone [facility] Surgery [address] [facility] Floor 1 [place] [address] Dusty Mendes MD 11/03/2024 9:30 AM TECHNICIAN AUTOMATIC Pre-Admission Testing [facility] for Preoperative Assessment and Planning [facility] ([facility]) [address] [place] [address] Preoperative testing (Primary Dx) 10/27/2024 Orders Only [facility] Cardiology [address] [facility] Medical Office Building [address] [place] [address] Desi Reynolds MD 10/27/2024 Documentation [facility] Surgery [address] [facility] 2nd Floor [address] [place] [address] Scottie Valdivia CMA 10/26/2024 9:30 AM TECHNICIAN AUTOMATIC Office Visit [facility] Surgery [address] [facility] 2nd Floor [address] [place] [address] Dusty Mendes MD Abdominal aortic aneurysm (AAA) without rupture, unspecified part 10/18/2024 1:49 PM TECHNICIAN AUTOMATIC - 10/18/2024 11:59 PM TECHNICIAN AUTOMATIC Hospital Encounter [facility] Radiology [facility] [address] [place] [address] Dusty Mendes MD Infrarenal abdominal aortic aneurysm (AAA) without rupture Discharge Disposition: Discharge to home or self care 10/17/2024 9:15 AM TECHNICIAN AUTOMATIC Office Visit [facility] Cardiology at [address] [place] [address] Thaddeus Del Castillo MD Mixed hyperlipidemia (Primary Dx); Paroxysmal atrial fibrillation (HCC); Essential hypertension; ICD (implantable cardioverter-defibri llator) in place; Long Q-T syndrome; Presence of Amulet left atrial appendage closure device; Infrarenal abdominal aortic aneurysm (AAA) without rupture 10/10/2024 Orders Only [facility] Surgery [address] [facility] Floor 1 [place] [address] Dusty Mendes MD Infrarenal abdominal aortic aneurysm (AAA) without rupture (Primary Dx) 10/07/2024 Telephone [facility] Surgery [address] [facility] Floor 1 [place] [address] Dusty Mendes MD from Last 3 Months Allergies No known active allergies Medications atorvastatin [...] TOTAL DOSE OF 60MG 90 tablet 12/13/19 25 [...] as needed for pain 5 tablet 11/16/19 025 Discontinued( erapy completed) senna-docusate (PERICOLACE) 8.6-50 mg Take 1 tablet by mouth daily 30 tablet 11/16/19 025 Discontinued( erapy completed) Active Problems Problem Noted Date Diagnosed Date AAA (abdominal aortic aneurysm) without rupture 11/15/2024 Assessment & Plan (11/15/2024 1:59 PM TECHNICIAN AUTOMATIC): Patient with hx of AAA. Most recent [...] (11/18/2021): Added automatically from request for surgery [id number] CVA (cerebral vascular accident) 08/15/2021 Assessment & Plan (11/15/2024 7:35 AM TECHNICIAN AUTOMATIC): s/p aspiration thrombectomy 11/2019, R MCA stroke in 11/2019 and recent MRI 09/2023 finding of chronic caudate hemorrhage in location of prior RMCA stroke -cont statin -hold plavix for now Assessment & Plan (08/16/2021 9:20 AM TECHNICIAN AUTOMATIC): Dx 2019 - cont ASA, statin Assessment & Plan (08/15/2021 4:25 PM TECHNICIAN AUTOMATIC): Dx 2020 - cont ASA, statin Long Q-T syndrome 07/17/2021 Overview (07/17/2021): Added automatically from request for surgery [id number] Assessment & Plan (11/15/2024 7:36 AM TECHNICIAN AUTOMATIC): S/p single lead ICD (Clarient) -OU monitoring overnight -cont OP follow up Assessment & Plan (08/16/2021 9:20 AM TECHNICIAN AUTOMATIC): + Genetic testing with family hx of multiple sudden deaths. S/p ICD placement with EP 08/15. - s/p IV cefazolin q8 x3 - home xarelto on hold, resume 08/20 - f/u with EP Assessment & Plan (08/15/2021 4:24 PM TECHNICIAN AUTOMATIC): + Genetic testing with family hx of multiple sudden deaths. S/p ICD placement with EP 08/15. - cont IV cefazolin q8 x3 - bedrest overnight, cont arm sling - tele, CXR in AM, CBC in AM - no heparin products - home xarelto on hold, resume 08/20 Hypertriglyceridemia 10/13/2019 Obstructive sleep apnea 09/03/2018 Assessment & Plan (08/16/2021 9:20 AM TECHNICIAN AUTOMATIC): - cont home CPAP Assessment & Plan (08/15/2021 4:25 PM TECHNICIAN AUTOMATIC): - cont home CPAP Mitral valve prolapse 09/03/2018 Former tobacco use 09/03/2018 Lipid screening 09/03/2018 Bilateral lower extremity edema 09/03/2018 BRICE (dyspnea on exertion) 09/03/2018 Family history of sudden cardiac 8 Atrial fibrillation 08/30/2014 Overview (01/09/2017): Atrial fibrillation Assessment & Plan (11/15/2024 7:35 AM TECHNICIAN AUTOMATIC): On nadolol at home, not on AC. Has watchman in place -restart nadolol as able -OU overnight Assessment & Plan (08/16/2021 9:20 AM TECHNICIAN AUTOMATIC): Follows with Dr. Reynolds of EP - pepe on hold, resume 08/20 - cont home BB - tele Assessment & Plan (08/15/2021 4:25 PM TECHNICIAN AUTOMATIC): Follows with Dr. Reynolds of [facility] cantu on hold, resume 08/20 - cont home BB - tele Resolved Problems Problem Noted Date Diagnosed Date Resolved Date Infrarenal abdominal aortic aneurysm (AAA) without rupture 10/26/2024 11/15/2024 Chronic anticoagulation 10/13/2019 05/0 04/2024 Essential hypertension 09/03/201812/13 Assessment & Plan (08/16/2021 9:20 AM TECHNICIAN AUTOMATIC): - cont home losartan/HCTZ Assessment & Plan (08/15/2021 4:25 PM TECHNICIAN AUTOMATIC): - cont home losartan/HCTZ Immunizations Immunization Administration Dates Next Due Influenza, Trivalent, High D ose, Split, Preservative Free, Intramuscular 11/16/2024 Social History Tobacco Use Types Packs/Day Years [...] on file Legal Sex Male 7:41 AM TECHNICIAN AUTOMATIC Gender Identity Male 04/03/2021 2:48 PM CDT Sexual Orientation Straight 04/03/2021 2: 48 PM CDT Last Filed Vital Signs Vital Sign Reading Time Taken Comments Blood Pressure 110/76 12/27/2024 10:14 AM CDT Pulse 76 12/27/2024 10:14 AM CDT Temperature 36.1 C (97 F) 12/13/2024 10:22 AM CDT Respiratory Rate 20 11/16/2024 11:29 AM TECHNICIAN AUTOMATIC Oxygen Saturation 97% 12/27/2024 8:22 AM CDT Inhaled Oxygen Concentration - - Weight 116.1 kg (256 lb) 12/27/2024 10:14 AM CDT Height 182.9 cm (6') 12/27/2024 10:14 AM CDT Body Mass Index 34.72 12/27/2024 10:14 AM CDT Plan of Treatment Not on file Medical Devices Implanted Type Area Title I Teacher Device Identifier Shelf Expiration Date Model / Serial / Lot CardiLamoda Medical Inc Vascade Mvp 6-12fr Venous Closure [id number] - [id number] Implanted:Qty: 1 on 01/08/2024 by Chava Quick MD at [facility] Right: Femoral Vein [employer] Inc 09/07/2025 [id number] C-10U / / [id number] [employer] [place] [employer] [place] Excluder 14.5mm 12cm Contralateral Leg Graft Endovascular [id number] - [id number] - [id number] Implanted:Qty: 1 on 11/15/2024 by Dusty Mendes MD at [facility] Endoprosthesis Left: Common Iliac Artery [employer] 05/23/2027 [id number] / [id number] / Wl [place] [employer] [place] Excluder 14.5mm 10cm Contralateral Leg Graft Endovascular [id number] - [id number] - [id number] Implanted:Qty: 1 on 11/15/2024 by Liliane Aguilera MD at [facility] Endoprosthesis Right: Common Iliac Artery [employer] [employer] 08/28/2027 [id number] / [id number] / [employer] Shantal D150 Dynagen Enduralife Easyview Hf Perspectiv 5.37x7.36cm 1 Chamber - [id number] - [id number] Implanted:Qty: 1 on 08/15/2021 by Blaine Crawford DO at [facility] ICD Left: Chest Wall [employer] Shantal 10/26/2021 D150 / [id number] / [employer] Shantal 0676 [place] 4-Front 64cm Active Fixation 2 Coil Lead Icd - [id number] - [id number] Implanted:Qty: 1 on 08/15/2021 by Blaine Crawford DO at [facility] Lead Left: Heart [employer] Shantal 06/27/2023 0676 / [id number] / Medtronic Inc [id number] Tyrx 3.3x2.9in Large Envelope Absorbable Polyarylate Minocycline - [id number] Implanted:Qty: 1 on 08/15/2021 by Desi Reynolds MD at [facility] Other - see comments Med[employer]onic Inc 04/14/2022 [id number] / / [id number] Description:Antibacterial en velope for Implant [employer] [employer] Excluder 14.5mm 28.5mm 12cm 5.5cm Conformable Active Control Trunk [id number] - [id number] - [id number] Implanted:Qty: 1 on 11/15/2024 by Dusty Mendes MD at [facility] Stent N/A: Abdominal Aorta [employer] [employer] 08/16/2027 [id number] 12 [id number] 0 / [id number] Culp V[employer] System Closure Repair Femoral Artery Suture Mediated Perclose Prostyle 28837-52 - [id number] - [id number] Implanted:Qty: 1 on 11/15/2024 by Liliane Aguilera MD at [facility] Vascular Closure Device [employer] 08/04/2026 97352-5 3 / [id number] / [id number] [employer] System Closure Repair Femoral Artery Suture Mediated Perclose Prostyle 14418-60 - [id number] - [id number] Implanted:Qty: 1 on 11/15/2024 by Liliane Aguilera MD at [facility] Closure Device Right: Groin [employer] 08/04/2026 61351-5 3 / [id number] / [id number] [employer] System Closure Repair Femoral Artery Suture Mediated Perclose Prostyle 46372-61 - [id number] - [id number] Implanted:Qty: 1 on 11/15/2024 by Liliane Aguilera MD at [facility] Closure Device Left: Groin [employer] 08/04/2026 35267-8 3 / [id number] / [id number] [employer] System Closure Repair Femoral Artery Suture Mediated Perclose Prostyle 15746-15 - [id number] - [id number] Implanted:Qty: 1 on 11/15/2024 by Liliane Aguilera MD at [facility] Closure Device Left: Groin [employer] 08/04/2026 33756-0 3 / [id number] / [id number] Ar[employer] Inc Ar-1927bcft Corkscrew Tigertail 5.5mm 14[address] Mechanism Vent 2 Square - [id number] Implanted:Qty: 1 on 11/20/2021 by Krishna Chaparro MD at [facility] Right: Shoulder [employer] Inc 10/04/2024 AR-1927 BCFT / / [id number] Ar[employer] Inc Ar-1927bcft Corkscrew Tigertail 5.5mm 14[address] Mechanism Vent 2 Square - [id number] Implanted:Qty: 1 on 11/20/2021 by Krishna Chaparro MD at [facility] Right: Shoulder [employer] 05/04/2024 AR-1927 BCFT / / [id number] [employer] Inc Ar-1927bcft Corkscrew Tigertail 5.5mm 14[address] Mechanism Vent 2 Square - [id number] Implanted:Qty: 1 on 11/20/2021 by Krishna Chaparro MD at [facility] Right: Shoulder [employer] 10/04/2023 AR-1927 BCFT / / [id number] [employer] Inc Ar-1927bcft Corkscrew Tigertail 5.5mm 14[address] Mechanism Vent 2 Square - [id number] Implanted:Qty: 1 on 11/20/2021 by rKishna Chaparro MD at [facility] Right: Shoulder [employer] Inc 10/04/2023 AR-1927 BCFT / / [id number] Ar[employer] Inc Ar-2324bcc Swivelock C 4.75mm 19.1mm Closed Eyelet Vent [place] Suture - [id number] Implanted:Qty: 1 on 11/20/2021 by Krishna Chaparro MD at [facility] Right: Shoulder [employer] 08/04/2025 AR-2324 BCC / / [id number] [employer] Inc Ar-2324bcc Swivelock C 4.75mm 19.1mm Closed Eyelet Vent [place] Suture - [id number] Implanted:Qty: 1 on 11/20/2021 by Krishna Chaparro MD at [facility] Right: Shoulder [employer] 07/04/2025 AR-2324 BCC / / [id number] [employer]ulp [employer] Percutaneous Transcatheter Amplatzer Amulet 25mm 2-Zse2-917-025 - [id number] Implanted:Qty: 1 on 01/08/2024 by Chava Quick MD at [facility] Vascular 01/03/2028 9-ACP2- 010-025 / / [id number] [employer] Device Clsr Perclose Prostyle Sut-Mediatd Closure-Repair Sys 41141-55 - [id number] Implanted:Qty: 1 on 01/08/2024 by Chava Quick MD at [facility] [employer] 10/04/2025 86270-2 3 / / [id number] [employer] Device Clsr Perclose Prostyle Sut-Mediatd Closure-Repair Sys 18161-82 - [id number] Implanted:Qty: 1 on 01/08/2024 by Chava Quick MD at [facility] N/A: Femoral Vein [employer] 10/04/2025 48607-0 3 / / [id number] Procedures Procedure Name Priority Date/Time Associated Diagnosis [...] cardioverter-defibri llator EGFR Routine 11/16/2024 12:48 AM TECHNICIAN AUTOMATIC BASIC METABOLIC PANEL Routine 11/16/2024 12:48 AM TECHNICIAN AUTOMATIC CBC WITHOUT DIFFERENTIAL Routine 11/16/2024 12:48 AM TECHNICIAN AUTOMATIC EGFR STAT 11/15/2024 11:52 AM TECHNICIAN AUTOMATIC BASIC METABOLIC PANEL STAT 11/15/2024 11:52 AM TECHNICIAN AUTOMATIC CBC WITHOUT DIFFERENTIAL STAT 11/15/2024 11:52 AM TECHNICIAN AUTOMATIC EVAR - AORTA ENDOVASCULAR REPAIR Routine 11/15/2024 11:23 AM TECHNICIAN AUTOMATIC Infrarenal abdominal aortic aneurysm (AAA) without rupture POCT ACTIVATED CLOTTING TIME, LOW RANGE Routine 11/15/2024 10:57 AM TECHNICIAN AUTOMATIC POCT ACTIVATED CLOTTING TIME, LOW RANGE Routine 11/15/2024 10:10 AM TECHNICIAN AUTOMATIC POCT ACTIVATED CLOTTING TIME, LOW RANGE Routine 11/15/2024 9:30 AM TECHNICIAN AUTOMATIC POCT ACTIVATED CLOTTING TIME, LOW RANGE Routine 11/15/2024 8:51 AM TECHNICIAN AUTOMATIC MS AN PROCEDURE PLACEHOLDER Routine 11/15/2024 8:40 AM TECHNICIAN AUTOMATIC MS AN PROCEDURE PLACEHOLDER Routine 11/15/2024 8:18 AM TECHNICIAN AUTOMATIC MS AN PROCEDURE PLACEHOLDER Routine 11/15/2024 8:17 AM TECHNICIAN AUTOMATIC MS AN PROCEDURE PLACEHOLDER Routine 11/15/2024 8:01 AM TECHNICIAN AUTOMATIC MS AN ELECTIVE ENDOTRACHEAL AIRWAY Routine 11/15/2024 8:01 AM TECHNICIAN AUTOMATIC B CHECK SAMPLE STAT 11/15/2024 6:45 AM TECHNICIAN AUTOMATIC EGFR Routine 11/03/2024 10:10 AM TECHNICIAN AUTOMATIC Preoperative testing URINALYSIS, MICROSCOPIC ONLY Routine 11/03/2024 10:10 AM TECHNICIAN AUTOMATIC Preoperative testing DIFFERENTIAL AUTO Routine 11/03/2024 10:10 AM TECHNICIAN AUTOMATIC Preoperative testing COMPREHENSIVE METABOLIC PANEL Routine 11/03/2024 10:10 AM TECHNICIAN AUTOMATIC Preoperative testing CBC WITH AUTO DIFFERENTIAL Routine 11/03/2024 10:10 AM TECHNICIAN AUTOMATIC Preoperative testing TYPE AND SCREEN 14 DAY Routine 11/03/2024 10:10 AM TECHNICIAN AUTOMATIC Preoperative testing PROTIME-INR Routine 11/03/2024 10:10 AM TECHNICIAN AUTOMATIC Preoperative testing CPAP APTT ALGORITHM Routine 11/03/2024 10:10 AM TECHNICIAN AUTOMATIC Preoperative testing URINALYSIS AND REFLEX TO MICROSCOPIC AND CULTURE Routine 11/03/2024 10:10 AM TECHNICIAN AUTOMATIC Preoperative testing ECG 12-LEAD Routine 11/03/2024 9:38 AM TECHNICIAN AUTOMATIC Preoperative testing DEVICE CHECK - REMOTE Routine 10/27/2024 2:11 AM TECHNICIAN AUTOMATIC CTA CHEST ABDOMEN PELVIS Schedule Routine, Read Routine (OP Routine) 10/18/2024 3:48 PM TECHNICIAN AUTOMATIC Infrarenal abdominal aortic aneurysm (AAA) without rupture POCT CREATININE - DEVICE Routine 10/18/2024 3:08 PM TECHNICIAN AUTOMATIC POCT LIPID PANEL Routine 10/17/2024 9:02 AM TECHNICIAN AUTOMATIC Mixed hyperlipidemia from Last 3 Months Results [...] it. Electronically signed by: Rafael Lovett M.D. Narrative 12/27/2024 12:28 PM CDT EXAMINATION: CT ANGIOGRAPHY [...] an infrarenal abdominal aortic aneurysm with an beavq-cm-mlfhz stent graft in place. The proximal attachment [...] is 54 mm AP x 54 mm tzswt-da-mzuu. The maximum diameter of the graft is 28 mm AP x 28 mm atiev-bx-jcvi. NON-VASCULAR FINDINGS: Left subclavian pacemaker defibrillator lead [...] an infrarenal abdominal aortic aneurysm with an yeafk-wq-lxeiq stent graft in place. The proximal attachment [...] is 54 mm AP x 54 mm hdjus-vj-znot. The maximum diameter of the graft is 28 mm AP x 28 mm znnvt-qn-qeoe. NON-VASCULAR FINDINGS: Left subclavian pacemaker defibrillator lead [...] it. Electronically signed by: Rafael Lovett M.D. us Dusty Mendes MD IMG CT PROCEDURES Final Result * POCT creatinine (12/27/2024 7:05 AM CDT) Creatinine POC 1.3 0.8 - 1.3 mg/dL Blood 12/27/2024 7:05 AM CDT 12/27/2024 7:05 AM CDT Dusty Mendes MD LAB POCT ORDERABLES - DE VICE Final Result [facility] [place] [address] * DEVICE CHECK - IN OFFICE (12/13/2024 10:12 AM CDT) Anatomical Region Laterality Modality Other 12/13/2024 2:00 AM CDT Narrative 12/15/2024 9:51 AM CDT Interpretation Summary: Battery and Leads (BL) Normal parameters noted on battery and lead(s) --- Estimated battery longevity 12 years. Charge time 9.8 seconds. Presenting Rhythm (MS) Ventricular Sensing (VS) --- Irregular VS 58 bpm. Atrial fibrillation Arrhythmic events (AE) No new arrhythmic events in monitoring period Transmission Information (TI) Device Summary Report Procedure Note Desi Reynolds MD - 12/15/2024 Interpretation Summary: Battery and Leads (BL) Normal parameters noted on battery and lead(s) --- Estimated batterylongevity 12 years. Charge time 9.8 seconds. Presenting Rhythm (MS) Ventricular Sensing (VS) --- Irregular VS 58 bpm. Atrial fibrillation Arrhythmic events (AE) No new arrhythmic events in monitoring period Transmission Information (TI) Device Summary Report us Desi Reynolds MD CV CARDIAC SERVICES PROCEDURES Final Result * eGFR (11/16/2024 12:48 AM TECHNICIAN AUTOMATIC) [facility] eGFR 66 >=60 mL/min/1. 73 m2 Comment: [...] reviewed 2021. Blood 11/16/2024 12:4 8 AM TECHNICIAN AUTOMATIC 11/16/2024 2:13 AM TECHNICIAN AUTOMATIC Dusty Mendes MD LAB BLOOD ORDERABLES Fin al Result [facility] [place] [address] * (ABNORMAL) CBC without differential (11/16/2024 12:48 AM TECHNICIAN AUTOMATIC) [facility] WBC 11.6(H) 3.8 - 9.9 K/cumm Hgb 13.1 13.0 - 17.5 g/dL [facility] Hct 38.9 38.9 - 50.3 % [facility] Plt 163 150 - 400 K/cumm [facility] MPV 10.3 9.1 - 12.3 fL [facility] RBC 4.27(L) 4.30 - 5.80 M/cumm [facility] MCV 91.1 81.3 - 96.4 fL [facility] MCH 30.7 27.1 - 33.3 pg [facility] MCHC 33.7 32.3 - 35.7 g/dL [facility] RDW CV 13.6 11.1 - 14.9 % [facility] RDW SD 45.1 35.7 - 48.1 fL [facility] NRBC abs 0.00 0.00 - 0.01 K/cumm [facility] Blood 11/16/2024 12:4 8 AM TECHNICIAN AUTOMATIC 11/16/2024 1:49 AM TECHNICIAN AUTOMATIC us Dusty Mendes MD LAB BLOOD ORDERABLES Fin al Result [facility] [place] [address] * (ABNORMAL) Basic metabolic panel (11/16/2024 12:48 AM TECHNICIAN AUTOMATIC) Sodium 142 135 - 145 mmol/L Potassium, pl 4.1 3.3 - 4.9 mmol/L [facility] Chloride 107 97 - 110 mmol/L [facility] CO2 25 22 - 32 mmol/L [facility] Anion gap 10 2 - 15 mmol/L [facility] BUN 22 6 - 25 mg/dL [facility] Creatinine 1.20 0.80 - 1.30 mg/dL [facility] Glucose 94 70 - 199 mg/dL [facility] Comment: Interpretive Data Fasting glucose >/= 126 [...] 2022. Calcium 8.3(L) 8.5 - 10.3 mg/dL [facility] Blood 11/16/2024 12:4 8 AM TECHNICIAN AUTOMATIC 11/16/2024 1:48 AM TECHNICIAN AUTOMATIC Dusty Mendes MD LAB BLOOD ORDERABLES Fin al Result Performing Organization Address [facility] Co de Phone Number [facility] [place] [address] * eGFR (11/15/2024 11:52 AM TECHNICIAN AUTOMATIC) eGFR 68 >=60 mL/min/1. 73 m2 Comment: [...] reviewed 2021. Blood 11/15/2024 11:5 2 AM TECHNICIAN AUTOMATIC 11/15/2024 12:37 PM TECHNICIAN AUTOMATIC Dusty Mendes MD LAB BLOOD ORDERABLES Fin al Result Performing Organization Address City/[facility]/ZIP Co de Phone Number [facility] [place] [address] * CBC without differential (11/15/2024 11:52 AM TECHNICIAN AUTOMATIC) WBC 8.8 3.8 - 9.9 K/cumm Hgb 14.4 13.0 - 17.5 g/dL [facility] Hct 42.0 38.9 - 50.3 % [facility] Plt 155 150 - 400 K/cumm [facility] MPV 9.9 9.1 - 12.3 fL [facility] RBC 4.76 4.30 - 5.80 M/cumm [facility] MCV 88.2 81.3 - 96.4 fL [facility] MCH 30.3 27.1 - 33.3 pg [facility] MCHC 34.3 32.3 - 35.7 g/dL [facility] RDW CV 13.5 11.1 - 14.9 % [facility] RDW SD 43.3 35.7 - 48.1 fL [facility] NRBC abs 0.00 0.00 - 0.01 K/cumm [facility] Blood 11/15/2024 11:5 2 AM TECHNICIAN AUTOMATIC 11/15/2024 12:02 PM TECHNICIAN AUTOMATIC us Dusty Mendes MD LAB BLOOD ORDERABLES Fin al Result Performing Organization Address City/State/[facility] Co de Phone Number [facility] [place] [address] * (ABNORMAL) Basic metabolic panel (11/15/2024 11:52 AM TECHNICIAN AUTOMATIC) Sodium 140 135 - 145 mmol/L Potassium, pl 4.2 3.3 - 4.9 mmol/L [facility] Chloride 109 97 - 110 mmol/L [facility] CO2 24 22 - 32 mmol/L [facility] Anion gap 7 2 - 15 mmol/L [facility] BUN 17 6 - 25 mg/dL [facility] Creatinine 1.17 0.80 - 1.30 mg/dL [facility] Glucose 108 70 - 199 mg/dL [facility] Comment: Interpretive Data Fasting glucose >/= 126 [...] 2022. Calcium 8.1(L) 8.5 - 10.3 mg/dL [facility] Blood 11/15/2024 11:5 2 AM TECHNICIAN AUTOMATIC 11/15/2024 11:59 AM TECHNICIAN AUTOMATIC Dusty Mendes MD LAB BLOOD ORDERABLES Fin al Result Performing Organization Address [facility] Co de Phone Number [facility] [place] [address] * EVAR - AORTA ENDOVASCULAR REPAIR (11/15/2024 11:23 AM TECHNICIAN AUTOMATIC) Anatomical Region Laterality Modality X-Ray Angiograph y Narrative 11/16/2024 6:48 AM TECHNICIAN AUTOMATIC Please see OpNote for result. Dusty Mendes MD CV CARDIAC CATH PROCEDUR ES Final Result * POCT Activated clotting time, low range (11/15/2024 10:57 AM TECHNICIAN AUTOMATIC) ACT 147 123 - 168 sec POC Performer 1577 [facility] POC Device Number [id number] [facility] Blood 11/15/2024 10:5 7 AM TECHNICIAN AUTOMATIC 11/15/2024 10:57 AM TECHNICIAN AUTOMATIC Dusty Mendes MD LAB POCT ORDERABLES - DE VICE Final Result Performing Organization Address [facility] de Phone Number [facility] [place] [address] * (ABNORMAL) POCT Activated clotting time, low range (11/15/2024 10:10 AM TECHNICIAN AUTOMATIC) ACT 253(H) 123 - 168 sec POC Performer 1577 [facility] POC Device Number [id number] [facility] Blood 11/15/2024 10:1 0 AM TECHNICIAN AUTOMATIC 11/15/2024 10:10 AM TECHNICIAN AUTOMATIC us Dusty Mendes MD LAB POCT ORDERABLES - DE VICE Final Result Performing Organization Address [facility] Co de Phone Number [facility] [place] [address] * (ABNORMAL) POCT Activated clotting time, low range (11/15/2024 9:30 AM TECHNICIAN AUTOMATIC) ACT 337(H) 123 - 168 sec POC Performer 1577 [facility] POC Device Number [id number] [facility] Blood 11/15/2024 9:30 AM TECHNICIAN AUTOMATIC 11/15/2024 9:30 AM TECHNICIAN AUTOMATIC us Dusty Mendes MD LAB POCT ORDERABLES - DE VICE Final Result Performing Organization Address [facility] Phone Number [facility] [place] [address] * POCT Activated clotting time, low range (11/15/2024 8:51 AM TECHNICIAN AUTOMATIC) ACT 152 123 - 168 sec POC Performer 1577 [facility] POC Device Number [id number] [facility] Blood 11/15/2024 8:51 AM TECHNICIAN AUTOMATIC 11/15/2024 8:51 AM TECHNICIAN AUTOMATIC us Dusty Mendes MD LAB POCT ORDERABLES - DE VICE Final Result Performing Organization Address [facility] [place] [address] * MS AN PROCEDURE PLACEHOLDER (11/15/2024 8:40 AM TECHNICIAN AUTOMATIC) Narrative Shaun Tejeda CRNA - 11/15/2024 8:40 AM TECHNICIAN AUTOMATIC Shaun Tejeda CRNA 11/15/2024 8:40 AM Peripheral IV Catheter Patient location: OR Staff: Placed by: CLINICAL SAFETY SPECIALIST: Shaun Tejeda CRNA Preprocedure prep: Prep solution: chlorhexadine PPE: gloves and provider hat/mask PIV line: Laterality: left Site: hand Catheter size: 18 g Technique: anatomical landmarks and palpatation Procedure details: good blood return and occlusive dressing applied Number of attempts: 1 Assessment: Events: patient tolerated procedure well with no complications Esperanza Holman MD ANESTHESIA ORDERABLES Ed ited Result - Final * MS AN PROCEDURE PLACEHOLDER (11/15/2024 8:18 AM TECHNICIAN AUTOMATIC) Narrative Shaun Tejeda CRNA - 11/15/2024 8:18 AM TECHNICIAN AUTOMATIC Shaun Tejeda CRNA 11/15/2024 8:40 AM Peripheral [...] patient tolerated procedure well with no complications Esperanza Holman MD ANESTHESIA ORDERABLES Ed ited Result - Final * MS AN PROCEDURE PLACEHOLDER (11/15/2024 8:17 AM TECHNICIAN AUTOMATIC) Narrative Shaun Tejeda CRNA - 11/15/2024 8:17 AM TECHNICIAN AUTOMATIC Shaun Tejeda CRNA 11/15/2024 8:48 AM Arterial Line Patient location: OR End time: 11/15/2024 8:17 AM Indication: continuous blood pressure monitoring and blood sampling needed Ultrasound assisted: yes Staff: Supervising provider: Esperanza Holman MD Placed by: CLINICAL SAFETY SPECIALIST: Shaun Tejeda CRNA Procedure prep: Prep solution: chlorhexadine/alcohol Prep: provider hat/mask Skin infiltrated with lidocaine 1%: yes Arterial line: Catheter size: 3 Dutch Catheter length: 8 cm Catheter type: wire-guided catheter Seldinger technique: yes Laterality: left Site: radial artery Line secured: tape and Tegaderm Results: good waveform and good blood return Number of attempts: 1 Assessment: Events: patient tolerated procedure well with no complications Esperanza Holman MD ANESTHESIA ORDERABLES Ed ited Result - Final * MS AN ELECTIVE ENDOTRACHEAL AIRWAY, MS AN PROCEDURE PLACEHOLDER (11/15/2024 8:01 AM TECHNICIAN AUTOMATIC) Narrative Shaun Tejeda CRNA - 11/15/2024 8:01 AM TECHNICIAN AUTOMATIC Shaun Tejeda CRNA 11/15/2024 8:48 AM Airway Patient location: OR Urgency: elective Indications for airway management: anesthesia Difficult airway: no Staff: Supervising provider: Esperanza Holman MD Placed by: CLINICAL SAFETY SPECIALIST: Shaun Tejeda CRNA Emergent airway documentation: Risks [...] of attempts: 1 Ventilation between attempts: BVM Esperanza Holman MD ANESTHESIA ORDERABLES Ed ited Result - Final * Check Sample (11/15/2024 6:45 AM TECHNICIAN AUTOMATIC) ABO Rh A Positive [facility] OTHER 11/15/2024 6:45 AM TECHNICIAN AUTOMATIC 11/15/2024 7:18 AM TECHNICIAN AUTOMATIC Dusty Mendes MD LAB BLOOD ORDERABLES Fin al Result [facility] [place] [address] [facility] * TYPE AND SCREEN 14 DAY (11/03/2024 10:10 AM TECHNICIAN AUTOMATIC) Aparna, indirect Negative ABO Rh A Positive [facility] Blood 11/03/2024 10:1 0 AM TECHNICIAN AUTOMATIC 11/03/2024 10:51 AM TECHNICIAN AUTOMATIC Narrative [facility] - 11/03/2024 11:44 AM TECHNICIAN AUTOMATIC Is this test being ordered in advance for a procedure?->Yes Expected date of procedure:->11/15/24 Has the patient been transfused in the past 3 months?->No Brenda Akbar NP LAB BLOOD BANK TEST O RDERABLES Final Result Performing Organization Address [facility] de Phone Number [facility] [place] [address] * eGFR (11/03/2024 10:10 AM TECHNICIAN AUTOMATIC) eGFR 68 >=60 mL/min/1. 73 m2 Comment: [...] reviewed 2021. Blood 11/03/2024 10:1 0 AM TECHNICIAN AUTOMATIC 11/03/2024 10:50 AM TECHNICIAN AUTOMATIC us Brenda Akbar NP LAB BLOOD ORDERABLES Final Result [facility] [place] [address] * (ABNORMAL) Differential, auto (11/03/2024 10:10 AM TECHNICIAN AUTOMATIC) Neutrophil abs 7.3(H) 1.5 - 6.5 K/cumm Imm gran abs 0.1 0.0 - 0.1 K/cumm [facility] Lymphocyte abs 2.5 0.8 - 3.3 K/cumm [facility] Monocyte abs 0.8 0.2 - 0.8 K/cumm [facility] Eosinophil abs 0.2 0.0 - 0.5 K/cumm [facility] Basophil abs 0.1 0.0 - 0.1 K/cumm [facility] Neutrophil pct 66.2 % [facility] Comment: Interpretive Data Percent cell count reference ranges are not reported, since discordance with absolute values may lead to misinterpretation of CBC data. Current Interpretive Data was last revised on 2018. Imm gran pct 0.8 % [facility] Comment: Interpretive Data Percent cell count reference ranges are not reported, since discordance with absolute values may lead to misinterpretation of CBC data. Current Interpretive Data was last revised on 2018. Lymphocyte pct 23.2 % [facility] Comment: Interpretive Data Percent cell count reference ranges are not reported, since discordance with absolute values may lead to misinterpretation of CBC data. Current Interpretive Data was last revised on 2018. Monocyte pct 7.5 % [facility] Comment: Interpretive Data Percent cell count reference ranges are not reported, since discordance with absolute values may lead to misinterpretation of CBC data. Current Interpretive Data was last revised on 2018. Eosinophil pct 1.6 % [facility] Comment: Interpretive Data Percent cell count reference ranges are not reported, since discordance with absolute values may lead to misinterpretation of CBC data. Current Interpretive Data was last revised on 2018. Basophil pct 0.7 % [facility] Comment: Interpretive Data Percent cell count reference ranges are not reported, since discordance with absolute values may lead to misinterpretation of CBC data. Current Interpretive Data was last revised on 2018. Blood 11/03/2024 10:1 0 AM TECHNICIAN AUTOMATIC 11/03/2024 10:50 AM TECHNICIAN AUTOMATIC Brenda Akbar BINGO ATTENDANT LAB BLOOD ORDERABLES Final Result Performing Organization Address [facility] de Phone Number [facility] [place] [address] * CPAP aPTT algorithm (11/03/2024 10:10 AM TECHNICIAN AUTOMATIC) aPTT 29 28 - 38 sec Comment: Interpretive Data Heparin therapeutic range: 66.0 - 100.0 seconds. Range based on correlation with therapeutic heparin activity range of 0.3 - 0.7 Units/mL. Current interpretive data was last revised on 2023. Blood 11/03/2024 10:1 0 AM TECHNICIAN AUTOMATIC 11/03/2024 10:11 AM TECHNICIAN AUTOMATIC Brenda Akbar LAB BLOOD ORDERABLES Final Result Performing Organization Address [facility] de Phone Number [facility] [place] [address] * (ABNORMAL) Urinalysis reflex to microscopic and culture Urine, clean voided (11/03/2024 10:10 AM TECHNICIAN AUTOMATIC) Color, ur Straw Yellow Clarity, ur Clear Clear [facility] Specific gravity, ur 1.021 1.003 - 1.030 [facility] pH, urine 6.5 [facility] Comment: Interpretive Data U rine pH is affected by diet, medications, systemic acid-base disturbances, and renal tubular function. pH may affect urinary stone formation. For example, urine pH below 6.0 may help reduce the tendency for calcium phosphate stones and pH greater than 6.0 may reduce the tendency for uric acid stone formation. Source: [facility] Current Interpretive Data was last revised on 2017 Protein, ur ql 1+(A) Negative [facility] Glucose, ur ql Negative Negative [facility] Ketones, ur Negative Negative [facility] Bilirubin, ur Negative Negative [facility] Blood, ur Negative Negative [facility] Urobilinogen, ur <2.0 <2.0 mg/dL [facility] Nitrite, ur Negative Negative [facility] Leukocyte esterase, ur Negative Negative [facility] UA reflex comment Reflex to microscopic UA will be performed. [facility] Urine, clean voided 11/03/2024 10:10 AM TECHNICIAN AUTOMATIC 11/03/2024 10:47 AM TECHNICIAN AUTOMATIC Brenda Akbar NP LAB MICROBIOLOGY - NERAL ORDERABLES Final Result [facility] [place] [address] * (ABNORMAL) CBC with auto differential (11/03/2024 10:10 AM TECHNICIAN AUTOMATIC) WBC 11.0(H) 3.8 - 9.9 K/cumm Hgb 15.7 13.0 - 17.5 g/dL [facility] Hct 44.9 38.9 - 50.3 % [facility] Plt 200 150 - 400 K/cumm [facility] MPV 10.4 9.1 - 12.3 fL [facility] RBC 5.18 4.30 - 5.80 M/cumm [facility] MCV 86.7 81.3 - 96.4 fL [facility] MCH 30.3 27.1 - 33.3 pg [facility] MCHC 35.0 32.3 - 35.7 g/dL [facility] RDW CV 13.1 11.1 - 14.9 % [facility] RDW SD 41.2 35.7 - 48.1 fL [facility] NRBC abs 0.00 0.00 - 0.01 K/cumm [facility] Blood 11/03/2024 10:1 0 AM TECHNICIAN AUTOMATIC 11/03/2024 10:50 AM TECHNICIAN AUTOMATIC Brenda Akbar NP LAB BLOOD ORDERABLES Final Result Performing Organization Address [facility] Co de Phone Number [facility] [place] [address] * (ABNORMAL) Urinalysis, microscopic only (11/03/2024 10:10 AM TECHNICIAN AUTOMATIC) WBC, ur 0-5 0 - 5 /HPF RBC, ur 3-5(A) 0 - 2 /HPF [facility] Epithelial cells, squamous, ur 1-5 0 - 5 /HPF [facility] Mucous, ur Present(A) [facility] Culture Reflex Comment Reflex conditions for urine culture (WBC >10) not met. [facility] Urine, clean voided 11/03/2024 10:10 AM TECHNICIAN AUTOMATIC 11/03/2024 10:47 AM TECHNICIAN AUTOMATIC Brenda Akbar NP LAB URINE ORDERABLES Final Result Performing Organization Address [facility] [address] * Protime-INR (11/03/2024 10:10 AM TECHNICIAN AUTOMATIC) PT 11.4 9.7 - 13.0 sec INR 1.05 0.90 - 1.20 [facility] Comment: Interpretive data Oral anticoagulant therapeutic ranges: Venous thromboembolism prophylaxis or treatment: 2.0-3.0 CARDIOLOGY Standard range: 2.0-3.0 High-intensity range: 2.5-3.5 Refer to indication-specific guidelines for appropriate target ranges for prosthetic heart valve replacement. Current interpretive data was last revised on 2019. Blood 11/03/2024 10:1 0 AM TECHNICIAN AUTOMATIC 11/03/2024 10:11 AM TECHNICIAN AUTOMATIC Brenda Akbar NP LAB BLOOD ORDERABLES Final Result [facility] [place] [address] * Comprehensive metabolic panel (11/03/2024 10:10 AM TECHNICIAN AUTOMATIC) Sodium 140 135 - 145 mmol/L Potassium, pl 3.6 3.3 - 4.9 mmol/L [facility] Chloride 102 97 - 110 mmol/L [facility] CO2 28 22 - 32 mmol/L [facility] Anion gap 10 2 - 15 mmol/L [facility] BUN 16 6 - 25 mg/dL [facility] Creatinine 1.18 0.80 - 1.30 mg/dL [facility] Glucose 106 70 - 199 mg/dL [facility] Comment: Interpretive Data Fasting glucose >/= 126 [...] 2022. Calcium 9.4 8.5 - 10.3 mg/dL [facility] Bilirubin, total 0.8 0.1 - 1.2 mg/dL [facility] Protein, pl 7.7 6.5 - 8.5 g/dL [facility] Albumin 4.3 3.5 - 5.0 g/dL [facility] Alk phos 93 40 - 130 Units/L [facility] ALT 30 7 - 55 Units/L [facility] AST 25 10 - 50 Units/L [facility] Blood 11/03/2024 10:1 0 AM TECHNICIAN AUTOMATIC 11/03/2024 10:50 AM TECHNICIAN AUTOMATIC Brenda Akbar BINGO ATTENDANT LAB BLOOD ORDERABLES Final Result Performing Organization Address City/[facility]/ZIP Co de Phone Number [facility] [place] [address] * ECG 12 lead (11/03/2024 9:38 AM TECHNICIAN AUTOMATIC) Ventricular Rate EKG/Min 71 BPM [facility] QRS-Interval (MSEC) 84 ms [facility] QT-Interval (MSEC) 425 ms [facility] QTc 462 ms [facility] R [place] -20 degrees [facility] T [place] -4 degrees [facility] Diagnosis Atrial fibrillation Abnormal ECG No previous ECGs available Confirmed by NARESH WEATHERS M.D ([id number]) on 11/04/2024 9:18:55 AM [facility] 11/03/2024 9:38 AM TECHNICIAN AUTOMATIC 11/04/2024 9:18 AM TECHNICIAN AUTOMATIC us Brenda Akbar NP ECG ORDERABLES Final Result [facility] * DEVICE CHECK - REMOTE (10/27/2024 2:11 AM TECHNICIAN AUTOMATIC) Anatomical Region Laterality Modality Other 10/27/2024 2:11 AM TECHNICIAN AUTOMATIC Narrative 11/02/2024 4:06 PM TECHNICIAN AUTOMATIC Interpretation Summary: Battery and Leads (BL) Normal parameters noted on battery and lead(s) --- 12 years remaining (this is an estimate based on prior usage) Presenting Rhythm (MS) Ventricular Sensing (VS) --- rate 60-80 Arrhythmic [...] estimate based on prior usage) Presenting Rhythm (MS) Ventricular Sensing (VS) --- rate 60-80 Arrhythmic events (AE) No new arrhythmic events in monitoring period Anticoagulation (AC) Patient on anticoagulant therapy Patient prescribed Rivaroxaban (Xarelto) Transmission Information (TI) Device Summary Report us Desi Reynolds MD CV CARDIAC SERVICES PROCEDURES Final Result * CTA Chest Abdomen Pelvis (10/18/2024 3:48 PM TECHNICIAN AUTOMATIC) Anatomical Region Laterality Modality Body N/A Computed Tomogra phy 10/19/2024 4:08 AM TECHNICIAN AUTOMATIC Impressions 10/19/2024 4:08 AM TECHNICIAN AUTOMATIC 1. Infrarenal aortic aneurysm with maximal measurement [...] Royce Justice M.D. Narrative 10/19/2024 4:08 AM TECHNICIAN AUTOMATIC Examination: CT angiogram of the chest, abdomen [...] by: Royce Justice M.D. Dusty Mendes MD IM CT PROCEDURES Final Result * (ABNORMAL) POCT creatinine (10/18/2024 3:08 PM TECHNICIAN AUTOMATIC) Creatinine POC 1.4(H) 0.7 - 1.3 mg/dL Blood 10/18/2024 3:08 PM TECHNICIAN AUTOMATIC 10/18/2024 3:08 PM TECHNICIAN AUTOMATIC us Dusty Mendes MD LAB POCT ORDERABLES - DE VICE Final Result [facility] [place] [address] * POCT lipid panel (10/17/2024 9:02 AM TECHNICIAN AUTOMATIC) Cholesterol, POC <100 mg/dL HDL, POC 24 mg/dL Triglycerides, POC 141 mg/dL LDL Cholesterol POC 47.8 mg/dL Cholesterol Total, POC <100 mg/dL Capillary blood 10/17/2024 9 :02 AM TECHNICIAN AUTOMATIC us Thaddeus Del Castillo MD POINT OF CARE TEST ORDERA BLES Final Result from Last 3 Months Insurance [facility] OPEN ACCESS [employer] OPEN ACCESS MEDICARE [employer] OPEN ACCESS WORKERS COMPENSATION GENERIC Advance Directives For more information, please contact: [phone] * Full Code (Latest Code Status on File) Date Activated Date Inactivated Comments 11/15/2024 2:21 PM 11/16/2024 6:25 PM * Full Code Date Activated Date Inactivated Comments 08/15/2021 1:06 PM 08/16/2021 3:51 PM * Full Code Date Activated Date Inactivated Comments 08/15/2021 1:06 PM 08/15/2021 1:06 PM Care Teams Assistance Representative Relationship Specialty Start Date End Date Naresh Nieto DO PCP - General 09/07/14 Krishna Chaparro MD [id number] [facility] [address] [place] [address] Consulting Physician Orthopedic Surgery 11/20/21 Dusty Mendes MD [id number] [place] [address] Consulting Physician Vascular Surgery 11/16/24
[2025-01-04 09:35] VITALS: BP 119/81; PULSE 66; RESP 16; TEMP 35.4; O2SAT 96; BMI 34.6
[2025-01-04] MEDS: LACTATED RINGERS 1,000 ML 150 ML IV CONT (09:59)
[2025-01-04] MEDS: AMPICILLIN 2 GM/NS 100 ML 2 GM/100 ML BAG IVPB (10:02)
--- NOTE | 2025-01-04 10:12 | PM.HPGS ---
History of Present Illness History of Present Illness Consent: Risks, benefits, and alternatives have been discussed and questions answered. Patient agrees to proceed with procedure. Chief complaint: fecal abnormalities Narrative: Dean Chamberlain is a 69 year old male here for colonoscopy, last one at 52 yo, recently had + cologuard Review of Systems Review of Systems: All systems reviewed & are unremarkable except as noted in HPI and below PMFSH Past Medical History Medical History AAA (abdominal aortic aneurysm) without rupture Obesity (BMI 30-39.9) Cardiac defibrillator in place History of stroke Radiculopathy of cervical region Dyslipidemia A-fib Essential (primary) hypertension Abnormal angiogram of head Stroke Surgical History Surgical History History of implantable cardioverter-defibrillator (ICD) placement [place] teeth removed Family History Family History Father Unknown family medical history Mother Hypertension Breast cancer CAD (coronary artery disease) Long QT syndrome Social History Social History Years smoked: 40 Smoking status: Former smoker Smoking end date: 08/06/18 Alcohol intake: current Alcohol use details: 2 a month Do You Feel Safe in your Home?: Yes Lack of Transportation: No Lack of Food: Never True Current Housing: I Have Housing Concerned About Future Housing: No Difficulty Paying Gas/Electric Bills: No Difficulty Paying for Meds: No Currently Unemployed: No Education: Bachelor's Degree Difficulty w/ Childcare or Family Care: No Living arrangements: with family Meds Home Medications and Allergies Home Medications ?Medication ?Instructions ?Recorded ?Confirmed ?Type atorvastatin 40 mg tablet 40 mg PO DAILY 11/18/19 01/04/25 History nadolol 20 mg tablet 20 mg PO DAILY 08/13/21 01/04/25 History nadolol 40 mg tablet 40 mg PO DAILY 08/13/21 01/04/25 History clopidogrel 75 mg tablet (Plavix) 75 mg PO DAILY 03/08/24 01/04/25 History losartan 100 1 tablet PO DAILY 03/08/24 01/04/25 History mg-hydrochlorothiazide 25 mg tablet Allergies Allergy/AdvReac Type Severity Reaction Status Date / Time No Known Allergies Allergy Verified 01/04/25 10:09 Vital Signs Vital Signs - 24 hr 01/04/25 09:35 Temperature 95.8 F L Pulse Rate 66 Respiratory Rate 16 Blood Pressure 119/81 Pulse Oximetry 96 Oxygen Delivery Room Air Exam Const: General: comfortable and no acute distress HENMT: Face/Nose/Sinus: Normal nares present Eyes: General: appearance normal, both eyes and all related structures Neck: Neck: no JVD Resp: Auscultation: clear to auscultation bilaterally Cardio: Rate: regular rate Rhythm: regular rhythm GI: Inspection: non-distended GI Palp: Yes Soft to palpation Skin: General skin exam: normal color Neuro: General: gait normal Speech: normal speech Extrem: General: normal to inspection Psych: Mental Status: mental status grossly normal Assessment and Plan Assessment and plan (1) Positive colorectal cancer screening using Cologuard test: Code(s): R19.5 - Other fecal abnormalities Status: Acute Assessment and Plan: colonoscopy
[2025-01-04 10:24] VITALS: BP 86/59; PULSE 78; RESP 16; O2SAT 93
[2025-01-04] MEDS: GENTAMICIN 80MG/SOD CHL 50 ML 80 MG/50 ML BAG 100 MG IVPB (10:24)
[2025-01-04 10:34] VITALS: BP 95/74; PULSE 65; RESP 16; O2SAT 95
[2025-01-04 10:44] VITALS: BP 93/69; PULSE 66; RESP 16; O2SAT 95
== END 2025-01-04 11:01 | disposition home or self-care (01) ==
PROVIDERS: PCP Internal Medicine; Referring Provider Internal Medicine; Visit Provider Internal Medicine Gastroenterology
PROC: 0DJD8ZZ Inspection of Lower Intestinal Tract, Via Natural or Artificial Opening Endoscopic (ICD-10-PCS; CPT 45378; principal; 2025-01-04 12:00)
DX: D12.2 Benign neoplasm of ascending colon (principal); K57.30 Diverticulosis of large intestine without perforation or abscess without bleeding; E78.5 Hyperlipidemia, unspecified; I10 Essential (primary) hypertension; I48.91 Unspecified atrial fibrillation; I71.40 Abdominal aortic aneurysm, without rupture, unspecified; M54.12 Radiculopathy, cervical region; Z79.02 Long term (current) use of antithrombotics/antiplatelets; Z98.890 Other specified postprocedural states; Z95.810 Presence of automatic (implantable) cardiac defibrillator; Z87.891 Personal history of nicotine dependence; Z86.73 Personal history of transient ischemic attack (TIA), and cerebral infarction without residual deficits; Z80.3 Family history of malignant neoplasm of breast; Z82.49 Family history of ischemic heart disease and other diseases of the circulatory system
CPT/HCPCS: 45380; 88305; J0290; J1580; J2704; J7120

== ENCOUNTER 2025-06-06 11:38 | Outpatient (CLI) | payer MEDICARE, SELFPAY ==
--- OUTSIDE RECORDS SUMMARY | 2022-10-24 03:45 | XMS_ITS | Continuity of Care Document ---
Author Organization [facility] Address [address] [place] [address] Phone Care Team Providers Care Investigations Chief Name Role Phone Krishna Chaparro MD Unavailable Unavailable Allergies, Adverse Reactions, Alerts Substance Reaction Status Criticality No Known Allergies Active No Inform ation Medications Medication Instructions Dosage Effective Dates (start - stop) Status Comments Xarelto 20 mg tablet - Active losartan 100 mg tablet - Active hydrochlorothiazide 12.5 mg tablet - Active atorvastatin 40 mg tablet - Acti ve nadolol 20 mg tablet - Active Procedures Procedure Date Office/outpatient visit,est, mod 2022 Supplemental Report Office/outpatient visit,est, low 2021 Supplemental Report Office/outpatient visit,est, mod 2021 Supplemental Report Office/outpatient visit,est, mod 2021 Supplemental Report Office/outpatient visit,est, mod 2021 Supplemental Report Office/outpatient visit,est, low 2021 Supplemental Report Global/Postop followup visit Supplemental Report Global/Postop followup visit Supplemental Report Lance Sling With Waist Strap, Off The She lf Global/Postop followup visit Supplemental Report Cryotherapy Combo Unit Office consultation, moderate-high Nov-0 Advance Directives Directive Yes / No Effective Date File Name No Information Encounters Encounter Description Practice Location Reason(s) For Visit Diagnoses Date Provider Providers Copied on Encounter Office/outpat ient visit,est, mod [facility], [address], [id number], [place] tel:[phone] [facility] Right shoulder (chief complaint) Strain of musc/tend the rotator cuff of right shoulder, init 3 Shankar Keller. [address] [facility], [address], [id number] , [place]. tel: [phone] [facility], [address], [id number], [place] tel:[phone] [facility] Right shoulder (chief complaint) Strain of musc/tend the rotator cuff of right shoulder, init 2 Shankar Keller. [address] [facility], [address], [id number] , [place]. tel: [phone] Office/outpat ient visit,est, low [facility], [address], [id number], [place] tel:[phone] [facility] Right shoulder (chief complaint) Strain of musc/tend the rotator cuff of right shoulder, init 2 Shankar Keller. [address] [facility], [address], [id number] , [place]. tel: [phone] Office/outpat ient visit,est, mod [facility], [address], [id number], [place] tel:[phone] [facility] Right shoulder (chief complaint) Strain of musc/tend the rotator cuff of right shoulder, init 2 Shankar Keller. [address] [facility], [address], [id number] , [place]. tel: [phone] Office/outpat ient visit,est, mod [facility], [address], [place], [place], [id number], [place] tel:[phone] [facility] Right shoulder (chief complaint) Strain of musc/tend the rotator cuff of right shoulder, init 2 Shankar Keller. [address] [facility], [facility] [address], [place], [place], [id number] , [place]. tel: [phone] Office/outpat ient visit,est, mod [facility], [address], [place], [place], [id number], [place] tel:[phone] [facility] Right shoulder (chief complaint) Strain of musc/tend the rotator cuff of right shoulder, init 2 Shanakr Keller. [address] [facility], [address], [id number] , [place]. tel: [phone] Office/outpat ient visit,est, low [facility], [address], [id number], [place] tel:[phone] [facility] Right shoulder (chief complaint) Strain of musc/tend the rotator cuff of right shoulder, initBody mass index (BMI) 33.0-33.9, adult 2 Shankar Keller. [address] [facility], [address], [id number] , [place]. tel: [phone] [facility], [address], [id number], [place] tel:[phone] [facility] Right shoulder (chief complaint) Strain of musc/tend the rotator cuff of right shoulder, init 2 Shankar Keller. [address] [facility], [facility] [address], [place], [place], [id number] , [place]. tel: [phone] [facility], [address], [id number], [place] tel:[phone] [facility] Right shoulder (chief complaint) Strain of musc/tend the rotator cuff of right shoulder, init 2 Shankar Keller. [address] [facility] [place] [address], [place], [place], [id number] , [place]. tel: [phone] [facility], [address], [id number], [place] tel:[phone] [facility] Right shoulder (chief complaint) Strain of musc/tend the rotator cuff of right shoulder, init - 2 Shankar Keller. [address] [facility], [address] [place] [address], [place], [place], [id number] , [place]. tel: [phone] [facility], [address] [place] [address], [id number], [place] tel:[phone] [facility] No Information 2 Shankar Keller. [address] [facility], [place] [address], [place], [place], [id number] , [place]. tel: [phone] [facility], [address] [place] [address], [id number], [place] tel:[phone] [facility] Strain of musc/tend the rotator cuff of right shoulder, init 2 Shankar Keller. [address] [facility], [address], [id number] , [place]. tel: [phone] Office consultation, moderate-high [facility], [facility], [id number], [place] tel:[phone] [facility] Shoulder Injury (chief complaint) Strain of musc/tend the rotator cuff of right shoulder, init 2 Shankar Keller. [address] [facility], [address], [id number] , [place]. tel: [phone] Referring Provider: Krishna Jacinto, [address] [place] [address], [place], [address] . tel:[phone] Family History Family Member Type Diagnosis Age At Onset Mother Problem (finding) Heart Disease Father Problem (finding) Hypertension Father Problem (finding) Heart Disease Payers Payer name Insurance type Covered libertarian ID Autumn puentes(noe) GILBERT WC [id number] Social History Type Description Quantity Date Captured Comments Alcohol Use Details Unknown Caffeine Use Details Unknown Tobacco Use Status Ex-smoker Smoking Status Former smoker Non-Smoking Tobacco Use Details : No Details Available : No Details Available Sex Male Vital Signs Date / Time: Height Weight BMI Pulse Rate Blood Pressure Temperature Respiratory Rate Body Surface Area Head Circumference Head Circ. Percentile Wt./Eric. Percentile BMI percentile Pulse Ox Inhaled Ox 8:47 AM 72.00 in 113.398 kg (250.00 lbs) 33.9 1 kg/m leonardo (2) Chief Complaint And Reason For Visit From encounter dated '10/24/2022 08:45'. Right shoulder (chief complaint). Description: Patient comes in today for follow up of his right shoulder Reason For Referral Reason For Referral No Information History Of Present Illness Encounter Date Complaint History Of Prese nt Illness Right shoulder Patient comes in today for follow up of his right shoulder Right shoulder Patient comes in today for follow up of his right shoulder Right shoulder Patient comes in today for follow up of his right shoulder Right shoulder Patient comes in today for follow up of his right shoulder Right shoulder Patient comes in today for follow up of his right shoulder Right shoulder Patient comes in today for follow up of his right shoulder Right shoulder Patient comes in today for follow up of his right shoulder Right shoulder Patient comes in today for follow up of his right shoulder arthroscopy Right shoulder Patient comes in today for follow up of his right shoulder arthroscopy Right shoulder Patient comes in today for follow up of his right shoulder arthroscopy Shoulder Injury Patient comes in today for right shoulder pain Functional Status Date Functional Assessmen t No Information Instructions Date Instruction Additional Infor deanna Giving encouragement to exercise Related to Body mass index [BMI] 33.0-33.9, adult Assessments Type Assessment Date assessment Strain of musc/tend the rotator cuff of right shoulder, init Patient Care Teams Name Effective Dates (start - stop) Status Members No Information
--- OUTSIDE RECORDS SUMMARY | 2025-06-06 12:02 | XMS_ITS | Clinical Summary ---
Author Organization [facility] Address [facility] [place] [address] Care Team Providers Care Tandem Mill Roller Name Role Phone None, Provider MD Primary [...] Date Diagnosed Date CVA (cerebral vascular accident) (CMS/[facility] HHS/HC C) 11/15/2019 Immunizations Immunization Administration Dates Next Due PFIZER COVID-19 (ORIGINAL [...] Comments Blood Pressure 145/97 09/20/2021 10:09 AM STONECUTTER Pulse 75 09/20/2021 10:09 AM STONECUTTER Temperature 36.7 C (98.1 F) 09/20/2021 10:09 AM STONECUTTER Respiratory Rate 18 09/20/2021 10:09 AM STONECUTTER Oxygen Saturation 97% 09/20/2021 10:09 AM STONECUTTER Inhaled Oxygen Concentration - - Weight 113.4 kg (250 lb) 09/20/2021 10:09 AM STONECUTTER Height 182.9 cm (6') 09/20/2021 10:09 AM STONECUTTER Body Mass Index 33.91 09/20/2021 10:09 AM STONECUTTER Plan of Treatment Health Maintenance Due Date Last Done Comments Colorectal Cancer Screening Colonoscopy (10 Years) 1957 Hepatitis C 1975 DTaP, Tdap and Td Vaccines ( 1 - Tdap) 1976 Pneumococcal Vaccine: 50+ Years (1 of 1 - PCV) 2007 Zoster Vaccines (1 of 2) 2007 COVID-19 Vaccine (3 - 2023-2 5 season) [...] to complete this topic Insurance [facility] Care Teams Tandem Mill Roller Relationship Specialty Start Date End Date None, Provider, PCP - General 11/09/19
--- OUTSIDE RECORDS SUMMARY | 2025-06-06 12:02 | XMS_ITS | Encounter Summary ---
Author Organization [facility] Healthcare Address [address] [place] [address] Care Team Providers Care Finishing Supervisor Plastic Sheets Name Role Phone Feliciano Nieto DO Primary Care Provider [phone] Krishna Chaparro MD Unavailable [phone] Dusty Mendes MD Unavailable [phone] Encounter Details Date Type Department Care Team (Late st Contact Info) Description 10/22/2021 Telephone [facility] Radiology [address] [place] [address] Emani Rodriguez, CLIENT SUPPORT PROFESSIONAL [address] [facility] [address] [address] Social History Tobacco Use Types [...] on file Legal Sex Male 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 Gender Identity Male 04/03/2021 2:48 PM CDT Sexual Orientation Straight 04/03/2021 2: 48 PM CDT documented as of this encounter Plan of Treatment Not on file documented as of this encounter Visit Diagnoses Not on filedocumented in this encounter Care Teams Finishing Supervisor Plastic Sheets Relationship Specialty Start Date End Date Feliciano Nieto DO PCP - General 09/07/14 Krishna Chaparro MD [address] [facility] [address] [place] [address] Consulting Physician Orthopedic Surgery 11/20/21 Dusty Mendes MD [address] [facility] [id number] [place] [address] Consulting Physician Vascular Surgery 11/16/24 documented as of this encounter
--- OUTSIDE RECORDS SUMMARY | 2025-06-06 12:02 | XMS_ITS | Clinical Summary ---
Author Organization [facility] Address [address] [place] [address] Care Team Providers Care Control Integration Engineer Name Role Phone Feliciano Nieto DO Primary Care Provider [phone] Krishna Chaparro MD Unavailable [phone] Dusty Mendes MD Unavailable [phone] Allergies No known active allergies Medications losartan-hydroc hlorothiazide (HYZAAR) 100-25 mg per tablet Take 1 tablet by mouth nightly 90 tablet 3 5 Active UNABLE TO FINDIndications :pain Apply 1 each topically as needed (as needed for pain) Med Name: Cool Breeze Menthol THC infused lotion 1:1 THC/CBD Active acetaminophen (TYLENOL) 500 mg tabletIndicatio ns:Pain Take 2 tablets (1,000 mg total) by mouth every 6 (six) hours as needed for pain Active atorvastatin (LIPITOR) 40 mg tablet Take 1 tablet (40 mg total) by mouth daily 90 tablet 3 5 Active nadoloL (CORGARD) 20 mg tablet TAKE 1 TABLET BY MOUTH ONCE DAILY ALONG WITH 40MG FOR TOTAL DAILY DOSE OF 60MG 90 tablet 1 5 Active nadoloL (CORGARD) 40 mg tablet TAKE 1 TABLET BY MOUTH ONCE DAILY WITH 20MG TABLET FOR A TOTAL DOSE OF 60MG 90 tablet 1 5 Active clopidogreL (PLAVIX) 75 mg tablet Take 1 tablet by mouth once daily 90 tablet 5 Active Active Problems Problem Noted Date Diagnosed Date AAA (abdominal aortic aneurysm) without rupture 11/15/2024 Assessment & Plan (11/15/2024 1:59 PM GLASS ENGRAVER): Patient with hx of AAA. Most recent [...] (11/18/2021): Added automatically from request for surgery [id number] CVA (cerebral vascular accident) 08/15/2021 Assessment & Plan (11/15/2024 7:35 AM GLASS ENGRAVER): s/p aspiration thrombectomy 11/2019, R MCA stroke in 11/2019 and recent MRI 09/2023 finding of chronic caudate hemorrhage in location of prior RMCA stroke -cont statin -hold plavix for now Assessment & Plan (08/16/2021 9:20 AM GLASS ENGRAVER): Dx 2019 - cont ASA, statin Assessment & Plan (08/15/2021 4:25 PM GLASS ENGRAVER): Dx 2019 - cont ASA, statin Long Q-T syndrome 07/17/2021 Overview (07/17/2021): Added automatically from request for surgery [id number] Assessment & Plan (11/15/2024 7:36 AM GLASS ENGRAVER): S/p single lead ICD (Fastmobile) -OU monitoring overnight -cont OP follow up Assessment & Plan (08/16/2021 9:20 AM GLASS ENGRAVER): + Genetic testing with family hx of multiple sudden deaths. S/p ICD placement with EP 08/15. - s/p IV cefazolin q8 x3 - home xarelto on hold, resume 08/20 - f/u with EP Assessment & Plan (08/15/2021 4:24 PM GLASS ENGRAVER): + Genetic testing with family hx of multiple sudden deaths. S/p ICD placement with EP 08/15. - cont IV cefazolin q8 x3 - bedrest overnight, cont arm sling - tele, CXR in AM, CBC in AM - no heparin products - home xarelto on hold, resume 08/20 Hypertriglyceridemia 10/13/2019 Obstructive sleep apnea 09/03/2018 Assessment & Plan (08/16/2021 9:20 AM GLASS ENGRAVER): - cont home CPAP Assessment & Plan (08/15/2021 4:25 PM GLASS ENGRAVER): - cont home CPAP Mitral valve prolapse 09/03/2018 Former tobacco use 09/03/2018 Lipid screening 09/03/2018 Bilateral lower extremity edema 09/03/2018 BRICE (dyspnea on exertion) 09/03/2018 Family history of sudden cardiac 8 Atrial fibrillation 08/30/2014 Overview (01/09/2017): Atrial fibrillation Assessment & Plan (11/15/2024 7:35 AM GLASS ENGRAVER): On nadolol at home, not on AC. Has watchman in place -restart nadolol as able -OU overnight Assessment & Plan (08/16/2021 9:20 AM GLASS ENGRAVER): Follows with Dr. Reynolds of [facility] cantu on hold, resume 08/20 - cont home BB - tele Assessment & Plan (08/15/2021 4:25 PM GLASS ENGRAVER): Follows with Dr. Reynolds of [facility] Payan xarelto on hold, resume 08/20 - cont home BB - tele Resolved Problems Problem Noted Date Diagnosed Date Resolved Date Infrarenal abdominal aortic aneurysm (AAA) without rupture 10/26/2024 11/15/2024 Chronic anticoagulation 10/13/2019 05/0 04/2024 Essential hypertension 09/03/201812/13 Assessment & Plan (08/16/2021 9:20 AM GLASS ENGRAVER): - cont home losartan/HCTZ Assessment & Plan (08/15/2021 4:25 PM GLASS ENGRAVER): - cont home losartan/HCTZ Encounters Date Type Department Care Team Description 05/17/2025 Orders Only [facility] Medicine Cardiology [address] [facility] [address] [place] [address] Desi Reynolds MD 04/19/2025 Telephone [facility] Medicine Surgery [address] [facility] [address] [place] [address] Dusty Mendes MD from Last 3 Months Immunizations Immunization Administration Dates Next Due Influenza, Trivalent, High D ose, Split, Preservative Free, Intramuscular 11/16/2024 Surgical History Surgery Date Site/Laterality Comments TIBIA FRACTURE SURGERY c2013 Right DENTAL SURGERY 07/01/2021 multiple teeth extractions COLONOSCOPY SHOULDER SURGERY 10/05/2021 - 10/04/2022 torn bicep and rotator cuff CARDIAC DEFIBRILLATOR PLACEMENT 08/15/2021 Fastmobile BRAIN SURGERY Thrombectomy on Nov 09, 2019 FRACTURE SURGERY March 2013 CARDIAC VALVE REPLACEMENT Install Automa tic Internal Defibrillator/Pacer JOINT REPLACEMENT Shoulder reconstruct ion - November 2021 CARDIAC CATHETERIZATION 11/15/2024 N/A Procedure: EVAR - Aorta Endovascular Repair; Surgeon: Dusty Mendes MD; Location: [facility]; Service: Vascular; Laterality: N/A; Medical devices from this surgery are in the Medical Devices section. 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 Hyperlipidemia Stroke (HCC) 11/09/2019 Family [...] on file Legal Sex Male 7:41 AM GLASS ENGRAVER Gender Identity Male 04/03/2021 2:48 PM CDT Sexual Orientation Straight 04/03/2021 2: 48 PM CDT Obstetrics History Last Filed Vital Signs Vital Sign Reading Time Taken Comments Blood Pressure 110/76 12/27/2024 10:14 AM CDT Pulse 76 12/27/2024 10:14 AM CDT Temperature 36.1 C (97 F) 12/13/2024 10:22 AM CDT Respiratory Rate 20 11/16/2024 11:29 AM GLASS ENGRAVER Oxygen Saturation 97% 12/27/2024 8:22 AM CDT [...] - 2023-2 5 season) 2024 10/12/2020, 09/21/2020 Influenza Vaccine (#1) 2025 11/16/2024, 2012 Fall Risk Assessment 11/16/2025 11/16/2024, 03/09/20 20 Abdominal Aortic Aneurysm (A AA) Screen Completed 12/27/2024, 12/27/2024, 12/27/2024, Additional history exists Medical Devices Implanted Type Area Optician Device Identifier Shelf Expiration Date Model / Serial / Lot [employer]iva [employer] Inc Vascade Mvp 6-12fr Venous Closure [id number] - [id number] Implanted:Qty: 1 on 01/08/2024 by Chava Quick MD at [facility] Right: Femoral Vein [employer] Inc 09/07/2025 [id number] C-[id number] / / [id number] [employer] Stone Park Excluder 14.5mm 12cm Contralateral Leg Graft Endovascular [id number] - [id number] - [id number] Implanted:Qty: 1 on 11/15/2024 by Dusty Mendes MD at [facility] Endoprosthesis Left: Common Iliac Artery Wl [employer] 05/23/2027 [id number] 00 / [id number] / Wl [employer] Stone Park Excluder 14.5mm 10cm Contralateral Leg Graft Endovascular [id number] - [id number] - [id number] Implanted:Qty: 1 on 11/15/2024 by Liliane Aguilera MD at [facility] Endoprosthesis Right: Common Iliac Artery Wl [employer] 08/28/2027 [id number] 00 / [id number] / [employer]yce [employer] Shantal D150 Dynagen Enduralife Easyview Hf Perspectiv 5.37x7.36cm 1 Chamber - [id number] - [id number] Implanted:Qty: 1 on 08/15/2021 by Blaine Crawford DO at [facility] ICD Left: Chest Wall [employer] Shantal 10/26/2021 D150 / [id number] / [employer] Shantal 0676 Alva 4-Front 64cm Active Fixation 2 Coil Lead Icd - [id number] - [id number] Implanted:Qty: 1 on 08/15/2021 by Blaine Crawford DO at [facility] Lead Left: Heart [employer] Shantal 06/27/2023 0676 / [id number] / Medtronic Inc [id number] Tyrx 3.3x2.9in Large Envelope Absorbable Polyarylate Minocycline - [id number] Implanted:Qty: 1 on 08/15/2021 by Desi Reynolds MD at [facility] Other - see comments Medtronic Inc 04/14/2022 [id number] / / [id number] Description:Antibacterial en velope for Implant Wl [employer] Excluder 14.5mm 28.5mm 12cm 5.5cm Conformable Active Control Trunk [id number] - [id number] - [id number] Implanted:Qty: 1 on 11/15/2024 by Dusty Mendes MD at [facility] Stent N/A: Abdominal Aorta Wl [employer] 08/16/2027 [id number] / [id number] Culp Vascular System Closure Repair Femoral Artery Suture Mediated Perclose Prostyle 48931-88 - [id number] - [id number] Implanted:Qty: 1 on 11/15/2024 by Liliane Aguilera MD at [facility] Vascular Closure Device [employer] 08/04/2026 13620-0 3 / [id number] / [id number] Culp Vascular System Closure Repair Femoral Artery Suture Mediated Perclose Prostyle 98600-38 - [id number] - [id number] Implanted:Qty: 1 on 11/15/2024 by Liliane Aguilera MD at [facility] Vascular Closure Device Right: Groin [employer] 08/04/2026 10939-9 3 / [id number] / [id number] Culp Vascular System Closure Repair Femoral Artery Suture Mediated Perclose Prostyle 75655-34 - [id number] - [id number] Implanted:Qty: 1 on 11/15/2024 by Liliane Aguilera MD at [facility] Vascular Closure Device Left: Groin [employer] 08/04/2026 48892-4 3 / [id number] / [id number] Culp Vascular System Closure Repair Femoral Artery Suture Mediated Perclose Prostyle 11026-93 - [id number] - [id number] Implanted:Qty: 1 on 11/15/2024 by Liliane Aguilera MD at [facility] Vascular Closure Device Left: Groin [employer] 08/04/2026 15281-7 3 / [id number] / [id number] Ar[employer]rex Inc Ar-1927bcft Corkscrew Tigertail 5.5mm 14[address] Mechanism Vent 2 Square - [id number] Implanted:Qty: 1 on 11/20/2021 by Krishna Chaparro MD at [facility] Right: Shoulder [employer] Inc 10/04/2024 AR-1927 BCFT / / [id number] Ar[employer]rex Inc Ar-1927bcft Corkscrew Tigertail 5.5mm 14[address] Mechanism Vent 2 Square - [id number] Implanted:Qty: 1 on 11/20/2021 by Krishna Chaparro MD at [facility] Right: Shoulder [employer] Inc 05/04/2024 AR-1927 BCFT / / [id number] Ar[employer] Inc Ar-1927bcft Corkscrew Tigertail 5.5mm 14[address] Mechanism Vent 2 Square - [id number] Implanted:Qty: 1 on 11/20/2021 by Krishna Chaparro MD at [facility] Right: Shoulder [employer] Inc 10/04/2023 AR-1927 BCFT / / [id number] Ar[employer] Inc Ar-1927bcft Corkscrew Tigertail 5.5mm 14[address] Mechanism Vent 2 Square - [id number] Implanted:Qty: 1 on 11/20/2021 by Krishna Chaparro MD at [facility] Right: Shoulder Ar[employer] Inc 10/04/2023 AR-1927 [facility] / / [id number] Ar[employer] Inc Ar-2324bcc Swivelock C 4.75mm 19.1mm Closed Eyelet Vent [place] Suture - [id number] Implanted:Qty: 1 on 11/20/2021 by Krishna Chaparro MD at [facility] Right: Shoulder Ar[employer] Inc 08/04/2025 AR-2324 [facility] / / [id number] Ar[employer] Inc Ar-2324bcc Swivelock C 4.75mm 19.1mm Closed Eyelet Vent [place] Suture - [id number] Implanted:Qty: 1 on 11/20/2021 by Krishna Chaparro MD at [facility] Right: Shoulder Ar[employer] Inc 07/04/2025 AR-2324 [facility] / / [id number] Culp Vascular Percutaneous Transcatheter Amplatzer Amulet 25mm 0-Uke0-892-025 - [id number] Implanted:Qty: 1 on 01/08/2024 by Chava Quick MD at [facility] [employer] 01/03/2028 9-ACP2- 010-025 / / [id number] Culp V[employer] Device Clsr Perclose Prostyle Sut-Mediatd Closure-Repair Sys 65117-18 - [id number] Implanted:Qty: 1 on 01/08/2024 by Chava Quick MD at [facility] [employer] 10/04/2025 29580-3 1141 Culp V[employer] Device Clsr Perclose Prostyle Sut-Mediatd Closure-Repair Sys 36476-72 - [id number] Implanted:Qty: 1 on 01/08/2024 by Chava Quick MD at [facility] N/A: Femoral Vein [employer] 10/04/2025 70445-4 3 [id number] Procedures Procedure Name Priority Date/Time Associated Diagnosis Comments DEVICE CHECK - REMOTE Routine 05/17/2025 8:41 PM CDT CTA CHEST ABDOMEN PELVIS Schedule Routine, Read Routine (OP Routine) 12/27/2024 7:51 AM CDT Abdominal aortic aneurysm (AAA) without rupture, unspecified part Aftercare following surgery of the circulatory system from Last 3 Months or Most Recently Relevant to Health Maintenance Results * DEVICE CHECK - REMOTE (05/17/2025 8:41 PM CDT) Anatomical Region Laterality Modality Other 05/17/2025 8:41 PM CDT Narrative 06/02/2025 5:33 PM CDT Interpretation Summary: Battery and Leads (BL) Normal parameters noted on battery and lead(s) --- 12 years remaining (this is an estimate based on prior usage) Presenting Rhythm (AL) Ventricular Sensing (VS) --- rate 50-70 Arrhythmic events (AE) No new arrhythmic events in monitoring period Anticoagulation (AC) Patient on anticoagulant therapy Patient prescribed Rivaroxaban (Xarelto) Transmission Information (TI) Device Summary Report Procedure Note Desi Reynolds MD - 06/02/2025 Interpretation Summary: Battery and Leads (BL) Normal parameters noted on battery and lead(s) --- 12 years remaining(this is an estimate based on prior usage) Presenting Rhythm (AL) Ventricular Sensing (VS) --- rate 50-70 Arrhythmic events (AE) No new arrhythmic events in monitoring period Anticoagulation (AC) Patient on anticoagulant therapy Patient prescribed Rivaroxaban (Xarelto) Transmission Information (TI) Device Summary Report us Desi Reynolds MD [facility] PROCEDURES Final Result * CTA Chest Abdomen Pelvis (12/27/2024 7:51 [...] an infrarenal abdominal aortic aneurysm with an exxlo-ks-culxm stent graft in place. The proximal attachment [...] is 54 mm AP x 54 mm fzngk-fi-wiey. The maximum diameter of the graft is 28 mm AP x 28 mm zuyyi-xf-vctu. NON-VASCULAR FINDINGS: Left subclavian pacemaker defibrillator lead [...] an infrarenal abdominal aortic aneurysm with an vqfbz-wu-xcpkm stent graft in place. The proximal attachment [...] is 54 mm AP x 54 mm fdlor-zz-ahcw. The maximum diameter of the graft is 28 mm AP x 28 mm cuyzp-tn-nsdh. NON-VASCULAR FINDINGS: Left subclavian pacemaker defibrillator lead [...] Mendes MD IMG CT PROCEDURES Final Result from Last 3 Months or Most Recently Relevant to Health Maintenance Insurance [facility] OPEN ACCESS [facility] OPEN ACCESS MEDICARE [facility] OPEN ACCESS WORKERS COMPENSATION GENERIC Advance Directives For more information, please contact: [phone] * Full Code (Latest Code Status on File) Date Activated Date Inactivated Comments 11/15/2024 2:21 PM 11/16/2024 6:25 PM * Full Code Date Activated Date Inactivated Comments 08/15/2021 1:06 PM 08/16/2021 3:51 PM * Full Code Date Activated Date Inactivated Comments 08/15/2021 1:06 PM 08/15/2021 1:06 PM Care Teams Control Integration Engineer Relationship Specialty Start Date End Date Feliciano Nieto DO PCP - General 09/07/14 Krishna Chaparro MD [address] [address] Consulting Physician Orthopedic Surgery 11/20/21 Dusty Mendes MD [address] [facility] [id number] [place] [address] Consulting Physician Vascular Surgery 11/16/24
--- OUTSIDE RECORDS SUMMARY | 2025-06-06 12:02 | XMS_ITS | Clinical Summary ---
Author Organization [facility] Address [address] [place] [address] Care Team Providers Care Ophthalmology Technician Name Role Phone Feliciano Nieto DO Primary Care Provider [phone] Source Comments [facility],non-owned Affiliates and Associated Physician Practices is amultiple site organization consisting of ambulatory clinics and hospital sitesin [place], [place], [place] and [place]. This disclosure is being madepursuant to the Care Everywhere program and may not contain all information available regarding this patient. Last updated 18.[facility] Allergies No known active allergies Medications * Be aware that medications may not be up to date on this document. Alwaysverify current medications with the patient. aspirin (ASPIRIN) 81 MG chew tablet Take [...] at Not on file Legal Sex Male 6:00 PM CDT Gender Identity Not on file Sexual Orientation Not on file Last Filed Vital Signs Vital Sign Reading Time Taken Comments Blood Pressure 124/90 11/11/2019 11:50 AM FOOD PRODUCTION ASSOCIATE Pulse 71 11/11/2019 11:50 AM FOOD PRODUCTION ASSOCIATE Temperature 36.8 C (98.2 F) 11/11/2019 11:50 AM FOOD PRODUCTION ASSOCIATE Respiratory Rate 16 11/11/2019 11:5 0 AM FOOD PRODUCTION ASSOCIATE Oxygen Saturation 97% 11/11/2019 11: 50 AM FOOD PRODUCTION ASSOCIATE Inhaled Oxygen Concentration 21% 03/2020 11:00 PM FOOD PRODUCTION ASSOCIATE Weight 117.8 kg (259 lb 11.2 oz) 2019 10:00 AM FOOD PRODUCTION ASSOCIATE Height 182.9 cm (6') 11/11/2019 10:00 AM FOOD PRODUCTION ASSOCIATE Body Mass Index 35.22 11/11/2019 10:00 AM FOOD PRODUCTION ASSOCIATE Plan of Treatment Health Maintenance Due Date [...] AAA SCREENING 2022 SCREENING FOR DIABETES 11/11/2022 0, 11/11/2019, 11/11/2019, Additional history exists COVID-19 VACCINE (1 - 2023- season) 2024 DEPRESSION SCREENING 10/05/2024 INFLUENZA VACCINE (#1) 2025 Respiratory Syncytial Virus (RSV) Vaccine Pt: [...] PANEL (CALCIUM TOTAL) Routine 11/11/2019 12:11 AM FOOD PRODUCTION ASSOCIATE from Last 3 Months or Most Recently Relevant to Health Maintenance Results * BASIC METABOLIC PANEL (CALCIUM TOTAL) (11/11/2019 12:11 AM FOOD PRODUCTION ASSOCIATE) BUN 17 7 - 26 mg/dL 11/11/2019 12:49 AM [facility] Creatinine 1.1 0.6 - 1.2 mg/dL 11/11/2019 12:49 AM [facility] Sodium 139 136 - 145 mmol/L 11/11/2019 12:49 AM [facility] Potassium 4.1 3.5 - 4.5 mmol/L 11/11/2019 12:49 AM [facility] Chloride 106 98 - 107 mmol/L 11/11/2019 12:49 AM [facility] CO2 25 22 - 29 mmol/L 11/11/2019 12:49 AM [facility] Glucose 91 70 - 115 mg/dL 11/11/2019 12:49 AM [facility] Calcium 8.6 8.4 - 10.2 mg/dL 11/11/2019 12:49 AM [facility] Anion Gap 12 8 - 18 11/11/2019 12:49 AM [facility] BUN/Creatinine Ratio 15 7 - 23 11/11/2019 12:49 AM [facility] Osmolality Calculated 289 270 - 300 mOsm/kg 11/11/2019 12:49 AM [facility] eGFR >60 >60 mL/min/1.7 3 m2 11/11/2019 12:49 AM [facility] Blood BLOOD SPECIMEN / Unknown Lab Venipuncture / Unknown 11/11/2019 12:11 AM FOOD PRODUCTION ASSOCIATE 11/11/2019 12:27 AM FOOD PRODUCTION ASSOCIATE us Leticia Santana MD LAB - CHEMISTRY ORDERABLES Final Result [id number] [place] [address], [facility] [phone] from Last 3 Months or Most Recently Relevant to Health Maintenance Insurance [facility] Address: [facility] [id number] [place] [address] [employer] SELF PAY NO INSURANCE Member Subscriber Plan / Payer (Ef fective for All Dates) Name:Junaid Chamberlain Member ID:Not on file Relation to Subscriber:Not on file Name:JUNAID CHAMBERLAIN Subscriber ID:Not on file (Home) Address: [address] [place] [address] Payer ID:Not on file Group ID:Not on file Type:Self Pay Address: [place], [place] [employer] Advance Directives * Full Code (Latest Code Status on File) Date Activated Date Inactivated Comments 11/09/2019 5:29 PM 11/11/2019 4:31 PM Care Teams Ophthalmology Technician Relationship Specialty Start Date End Date Feliciano Nieto DO PCP - General Internal Medicine 11/09/19
[2025-06-06 15:43] LABS: Hemoglobin A1C 5.5 % (<5.7)
[2025-06-06 16:10] LABS: Cholesterol 95 mg/dL (0-200); HDL Direct 28 mg/dL; Triglycerides 137 mg/dL (<150)
== END 2025-06-06 11:39 | disposition home or self-care (01) ==
PROVIDERS: PCP Internal Medicine; Visit Provider Internal Medicine
DX: R73.9 Hyperglycemia, unspecified (principal); I10 Essential (primary) hypertension; I48.11 Longstanding persistent atrial fibrillation; E87.6 Hypokalemia
CPT/HCPCS: 36415; 80061; 82172; 83036